=== PATIENT | female | born 1955 | race Caucasian/White ===

== ENCOUNTER 2019-10-19 13:19 | Outpatient (CLI) | payer MEDICARE, MEDICAID, SELFPAY ==
--- NOTE | 2019-10-19 13:30 | MM_ITS ---
WS: [id number] SCREENING DIGITAL MAMMOGRAM WITH CAD HISTORY: SCREENING COMPARISON: 07/14/2018 and 06/03/2016 Bilateral CC and MLO views submitted. Computer aided detection analyzed. Breast composition: There are scattered areas of fibroglandular density. No suspicious masses, microc alcifications or architectural distortion. MM/[id number] IMPRESSION: BI-RADS: 1-Negative FOLLOW UP: 1 Year Follow-up
== END 2019-10-19 13:20 | disposition home or self-care (01) ==
LOC: RADSHAW 13:28
PROVIDERS: Family Provider Family Medicine; PCP Family Medicine; Visit Provider Family Medicine
DX: Z12.31 Encounter for screening mammogram for malignant neoplasm of breast (principal)
CPT/HCPCS: 77067

== ENCOUNTER 2019-10-28 14:39 | Outpatient (CLI) | payer MEDICARE, MEDICAID, SELFPAY ==
--- NOTE | 2019-10-28 14:53 | XR_ITS ---
WS: [id number] CHEST 2 VIEWS HISTORY: CHRONIC COUGH COMPARISON: 11/18/2018 Lungs: Clear with no abnormality. No pleural effusion or pneumothorax. Cardiac size: Normal. Mediastinum/Aorta: Normal mediastinum. Bones: Normal. Prior anterior cervical fusion. XR/XR chest 2V* [id number] IMPRESSION: Normal chest.
== END 2019-10-28 14:40 | disposition home or self-care (01) ==
LOC: RAD 14:50
PROVIDERS: Family Provider Family Medicine; PCP Family Medicine; Visit Provider Nurse Practitioner Family
DX: R05 Cough (principal)
CPT/HCPCS: 71046

== ENCOUNTER → 2019-11-10 13:38 | Outpatient (BNVA) | payer MEDICARE, MEDICAID, SELFPAY | PROVIDERS: Family Provider Family Medicine; PCP Family Medicine; Visit Provider Nurse Practitioner | DX: F41.1 Generalized anxiety disorder (principal); F33.2 Major depressive disorder, recurrent severe without psychotic features; F17.210 Nicotine dependence, cigarettes, uncomplicated | CPT/HCPCS: 99213 ==

== ENCOUNTER 2019-12-01 10:52 | Outpatient (CLI) | payer MEDICARE, MEDICAID, SELFPAY ==
--- NOTE | 2019-12-01 13:17 | PFTS_ITS ---
Date of Study:12/01/2019 Date of Dictation: MECHANICS: Forced vital capacity (FVC) is normal. Forced expiratory volume in one second (FEV1) is normal. FEV1/FVC is reduced. FLOW VOLUME LOOP: Reduced flow at all lung volumes with scooping. LUNG VOLUMES: Not measured DIFFUSING CAPACITY FOR CARBON MONOXIDE: Not measured INTERPRETATION: The pulmonary function tests are consistent with mild airflow obstruction. There is significant postbronchodilator response. MTDD
== END 2019-12-01 10:53 | disposition home or self-care (01) ==
LOC: RT 10:54
PROVIDERS: Family Provider Family Medicine; PCP Family Medicine; Visit Provider Nurse Practitioner Family
DX: R05 Cough (principal)
CPT/HCPCS: 94060

== ENCOUNTER → 2020-02-02 08:35 | Outpatient (BNVA) | payer MEDICARE, MEDICAID, SELFPAY | PROVIDERS: Family Provider Family Medicine; PCP Family Medicine; Visit Provider Nurse Practitioner | DX: F33.2 Major depressive disorder, recurrent severe without psychotic features (principal); F41.1 Generalized anxiety disorder | CPT/HCPCS: 99213 ==

== ENCOUNTER 2020-03-30 12:35 | Outpatient (CLI) | payer MEDICARE, MEDICAID, SELFPAY ==
--- NOTE | 2020-03-30 12:56 | CT_ITS ---
WS: [id number] LDCT LUNG CANCER SCREENING TECHNIQUE: Noncontrast CT of the chest with coronal and sagittal reformatted images. CLINICAL INFORMATION: NICOTINE DEPENDENCE, CIGARETTES COMPARISON: CT April 29, 2018 DLP: 53.47 mGy.cm DIvol: 1.[address] scans at [facility] use at least one of these dose optimization techniques: automat ed exposure control; mA and/or kV adjustment per patient size (includes targeted exams where dose is matched to clinical indication); or iterative reconstruction. FINDINGS: Hazy atelectasis in the lung bases. A few calcified granulomas. No suspicious pulmonary parenchymal a bnormalities. No acute pulmonary infiltrates. Calcified hilar nodes. Vascular calcification including coronary. No mediastinal or hilar lymphadenopathy. Prior postoperative changes involving the stomach and GE junction. No axillary lymphadenopathy. Mild thoracic kyphosis. Prior postoperative changes lo wer cervical spine. CT/CT lung screening [id number] IMPRESSION: LUNG-RADS: 1-Negative FOLLOW UP: 12 Month: Continue annual screening with LDCT
== END 2020-03-30 12:36 | disposition home or self-care (01) ==
LOC: CT 12:40
PROVIDERS: PCP Family Medicine; Visit Provider Family Medicine
DX: Z12.2 Encounter for screening for malignant neoplasm of respiratory organs (principal); F17.210 Nicotine dependence, cigarettes, uncomplicated
CPT/HCPCS: G0297

== ENCOUNTER → 2020-04-25 07:59 | Outpatient (BNVA) | payer MEDICARE, MEDICAID, SELFPAY | PROVIDERS: PCP Family Medicine; Visit Provider Nurse Practitioner | DX: F33.2 Major depressive disorder, recurrent severe without psychotic features (principal); F41.1 Generalized anxiety disorder; F17.210 Nicotine dependence, cigarettes, uncomplicated | CPT/HCPCS: 99213 ==

== ENCOUNTER → 2020-07-19 07:48 | Outpatient (BNVA) | payer MEDICARE, MEDICAID, SELFPAY | PROVIDERS: PCP Family Medicine; Visit Provider Nurse Practitioner | DX: F33.2 Major depressive disorder, recurrent severe without psychotic features (principal); F41.1 Generalized anxiety disorder; F17.210 Nicotine dependence, cigarettes, uncomplicated | CPT/HCPCS: 99213 ==

== ENCOUNTER → 2020-07-20 12:49 | Outpatient (BNVA) | payer MEDICARE, MEDICAID, SELFPAY | PROVIDERS: PCP Family Medicine; Visit Provider Nurse Practitioner Family | DX: R06.00 Dyspnea, unspecified (principal) | CPT/HCPCS: 87635 ==

== ENCOUNTER 2020-07-24 08:54 | Outpatient (CLI) | payer MEDICARE, MEDICAID, SELFPAY ==
--- NOTE | 2020-07-24 10:56 | PFTS_ITS ---
Date of Study:07/24/20 Date of Dictation: MECHANICS: Forced vital capacity (FVC) is normal. Forced expiratory volume in one second (FEV1) is normal. FEV1/FVC is reduced. FLOW VOLUME LOOP: Minimal scooping. LUNG VOLUMES: Not performed DIFFUSING CAPACITY FOR CARBON MONOXIDE: Not performed INTERPRETATION: The spirometry is consistent with mild obstruction. MTDD
== END 2020-07-24 08:55 | disposition home or self-care (01) ==
LOC: RT 08:57
PROVIDERS: PCP Internal Medicine; Visit Provider Nurse Practitioner Family
DX: R06.00 Dyspnea, unspecified (principal); J44.9 Chronic obstructive pulmonary disease, unspecified; F17.210 Nicotine dependence, cigarettes, uncomplicated
CPT/HCPCS: 94010

== ENCOUNTER → 2020-10-16 08:03 | Outpatient (BNVA) | payer MEDICARE, MEDICAID, SELFPAY | PROVIDERS: PCP Internal Medicine; Visit Provider Nurse Practitioner | DX: F41.1 Generalized anxiety disorder (principal); F33.2 Major depressive disorder, recurrent severe without psychotic features; F17.210 Nicotine dependence, cigarettes, uncomplicated | CPT/HCPCS: 99213 ==

== ENCOUNTER → 2020-12-20 07:26 | Outpatient (BNVA) | payer MEDICARE, MEDICAID, SELFPAY | PROVIDERS: PCP Internal Medicine; Visit Provider Nurse Practitioner | DX: F33.2 Major depressive disorder, recurrent severe without psychotic features (principal); F41.1 Generalized anxiety disorder; F17.210 Nicotine dependence, cigarettes, uncomplicated | CPT/HCPCS: 99214 ==

== ENCOUNTER 2021-03-07 13:37 | Outpatient (CLI) | payer MEDICARE, MEDICAID, SELFPAY ==
--- NOTE | 2021-03-07 13:41 | MM_ITS ---
WS: [id number] BILATERAL SCREENING DIGITAL MAMMOGRAM WITH CAD HISTORY: SCREENING COMPARISON: 10/19/2019 and 2017 Bilateral CC and MLO views submitted. Computer aided detection analyzed. Breast composition: The breasts are almost entirely fatty. No suspicious masses, microcalcifications or architectural distortion. MM/[id number] IMPRESSION: BI-RADS: 1-Negative FOLLOW UP: 1 Year Follow-up
== END 2021-03-07 13:38 | disposition home or self-care (01) ==
LOC: RADSHAW 13:40
PROVIDERS: PCP Internal Medicine; Visit Provider Internal Medicine
DX: Z12.31 Encounter for screening mammogram for malignant neoplasm of breast (principal)
CPT/HCPCS: 77067

== ENCOUNTER → 2021-03-14 07:50 | Outpatient (BNVA) | payer MEDICARE, MEDICAID, SELFPAY | PROVIDERS: PCP Internal Medicine; Visit Provider Nurse Practitioner | DX: F33.2 Major depressive disorder, recurrent severe without psychotic features (principal); F41.1 Generalized anxiety disorder; F17.210 Nicotine dependence, cigarettes, uncomplicated | CPT/HCPCS: 99214 ==

== ENCOUNTER → 2021-05-17 10:53 | Outpatient (BNVA) | payer MEDICARE, MEDICAID, SELFPAY | PROVIDERS: PCP Internal Medicine; Visit Provider Surgery | DX: Z12.11 Encounter for screening for malignant neoplasm of colon (principal); K21.9 Gastro-esophageal reflux disease without esophagitis | CPT/HCPCS: 87635 ==

== ENCOUNTER 2021-05-23 05:43 | Day surgery (SDC) | payer MEDICARE, MEDICAID, SELFPAY ==
[2021-05-21 09:35] VITALS: BMI 33.0
[2021-05-23 06:06] VITALS: BP 157/103; PULSE 102; RESP 18; TEMP 36.4; O2SAT 93
[2021-05-23] MEDS: sodium chloride 0.9% 1,000 ML 30 ML IV (06:20)
--- NOTE | 2021-05-23 06:22 | P.HP_ITS ---
Same Day Surgery H&P Indication for Procedure/HPI DATE OF PROCEDURE: May 23, 2021 CHIEF COMPLAINT/INDICATIONFOR SURGICAL PROCEDURE: Blood in stool PREOP DIAGNOSIS: Bleeding per rectum PLANNED PROCEDRUE: Operation Date: 05/23/21 07:00 Proposed Procedures p Colonoscopy [id number] Z12.11 K21.9(Not Applicable) - Henri Spain MD s EGD [id number] Z12.11 K21.9(Not Applicable) - Henri Spain MD This is a pleasant 65 years old female patient well-known to me from previous clinical encounters as she comes today with broad spectrum of symptomatology including but not limited to nausea, worsening acid reflux in spite of being on PPI therapy for years and intermittent bleeding per rectum. Patient undergone a colonoscopy back in 2018 by me and found to have colon polyps and had a previous EGD that was done back in 2019 and showed gastritis food retention. Back in 2019 patient undergo modified barium swallow and showed 1. Delayed esophageal peristalsis may be due to distal esophageal dysfunction or possibly, though less likely, mechanical obstruction. Suggest follow-up esophagram. 2. Premature spillage with barium suspension and without laryngeal penetration or norbert aspiration. Interim history 05/23/2021 Patient comes today for diagnostic EGD and colonoscopy ROS All systems have been reviewed negative except as per the above or per problem list Medications/Allergies* Home Medications Medication Instructions Recorded Confirmed Type cholecalciferol (vitamin D3) 250 10,000 unit PO QDAY 11/10/19 05/21/21 History mcg (10,000 unit) capsule fenofibrate nanocrystallized 48 mg 48 mg PO QDAY 11/10/19 05/21/21 History tablet levothyroxine 125 mcg capsule 125 mcg PO QDAY 11/10/19 05/21/21 History losartan 50 mg-hydrochlorothiazide 1 tab PO QDAY 11/10/19 05/21/21 History 12.5 mg tablet melatonin 10 mg capsule 10 mg PO .at bed cap 11/10/19 05/21/21 History mirtazapine 7.5 mg tablet 7.5 mg PO QDAY 11/10/19 05/21/21 History omeprazole 40 mg capsule,delayed 40 mg PO QDAY 11/10/19 05/21/21 History release albuterol sulfate 90 mcg/actuation 2 puff INHALATION TID gm 07/18/20 05/21/21 History aerosol inhaler atorvastatin 40 mg tablet 40 mg PO DAILY 03/15/21 05/21/21 History metformin 500 mg tablet 500 mg PO DAILY 03/15/21 05/23/21 History Allergies/Adverse Reactions Allergy/AdvReac Type Severity Reaction Status Date / Time morphine Allergy Severe nausea and Verified 03/17/21 15:53 vomiting wool Allergy Unknown Verified 03/17/21 15:53 Current Medications: Generic Name Dose Route Start Last Admin Trade Name Cori PRN Reason Stop Dose Admin Sodium Chloride 1,000 mls @ 30 mls/hr 05/23/21 06:00 05/23/21 06:20 Sodium Chloride 0.9% IV 05/24/21 05:59 30 mls/hr .Q24H GAURAV Administration Pertinent History/Comorbid Conditions* Medical History (Updated 03/17/21 @ 15:59 by Henri Spain MD) Generalized anxiety disorder Major depressive disorder, recurrent severe without psychotic features Nicotine dependence, cigarettes, uncomplicated Family History (Updated 03/15/21 @ 15:49 by Xenia Sherman) Diabetes CAD (coronary artery disease) Grandmother Cancer Stroke Denies family history of Lung disease Social History Smoking and tobacco status: former smoker Second hand smoke exposure: No Alcohol intake: former Lives independently: Yes Pertinent Exam Findings alert, oriented x 3, clear to auscultation bilaterally, regular rate & rhythm and procedure specific exam findings (Abdominal examination nontender nondistended soft) Recommendations Surgery/Procedure today (Diagnostic EGD and colonoscopy) Other Plans: Plan of care; After thorough history and physical examination and reviewing the chart, plan to perform a diagnostic esophagogastroduodenoscopy and diagnostic colonoscopy with possible biopsy and possible polypectomy. I discussed with the patient in detail the risks,benefits,alternatives and indications.The risk of aspiration, bleeding, soft tissue injury, perforation of the stomach/esophagus/colon and other potential concomitant complications were explained to the patient in details also the potential need for Thoracotomy and or Laproscoy/Laparotomy to repair any related complications including but not limited to colectomy and or Closotomy. The patient understood this well and did agree to proceed. 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
[2021-05-23 06:24] LABS: Glucose Point of Care 136 mg/dL (70-110)
--- NOTE | 2021-05-23 06:50 | ANES.PREANE2 ---
Pre-Anesthetic Assessment Pre-Anesthetic Assessment: Height/Weight: Height 1.7 m Weight 95.708 kg Temp Pulse Resp BP Pulse Ox 97.6 F 102 H 18 157/103 93 05/23/21 06:06 05/23/21 06:06 05/23/21 06:06 05/23/21 06:06 05/23/21 06:06 Preop Diagnosis: Bleeding per rectum Proposed Procedure: Operation Date: 05/23/21 07:00 Proposed Procedures p Colonoscopy [id number] Z12.11 K21.9(Not Applicable) - Henri Spain MD s EGD [id number] Z12.11 K21.9(Not Applicable) - Henri Spain MD Was Beta Zenon taken within 24 hours: N/A Was Clonidine taken within 24 hours: N/A Last intake: Intake Last Liquid Date 05/22/21 Last Liquid Time 22:00 Last Solid Date 05/21/21 Last Solid Time 18:00 Social: Social History: No alcohol and No tobacco Exam: Pre-Anes Outpt Exam: alert, oriented x 3, clear to auscultation bilaterally and regular rate & rhythm Airway: Submandibular: WNL Cervical ROM: WNL MP: 2 Dentition: False History/ROS: No significant history except as noted and No significant complaints CV/HEM: CV/HEM: HTN : : None reported Hepatic: Hepatic: None reported GI: GI: GERD Metabolic: Metabolic: None reported Musc/skel: Musc/skel: None reported Neuropsych: Neuropsych: Anxiety and Depression Anesthetic Plan: ASA status: 2 Anesthesia: MAC Risk of > 500 ml blood loss (7ml/kg in children): No Meds/Allergies Current Medications: Current Medications Generic Name Dose Route Start Last Admin Trade Name Freq PRN Reason Stop Dose Admin Sodium Chloride 1,000 mls @ 30 ml s/hr 05/23/21 06:00 05/23/21 06:20 Sodium Chloride 0.9% IV 05/24/21 05:59 30 mls/hr .Q24H GAURAV Administration PFSH Anesthesia PFSH: Medical History Generalized anxiety disorder Major depressive disorder, recurrent severe without psychotic features Nicotine dependence, cigarettes, uncomplicated Family History Grandmother CAD (coronary artery disease) Other Cancer Diabetes Stroke Denies family history of Lung disease Social History Smoking and tobacco status: former smoker Second hand smoke exposure: No Alcohol intake: former Lives independently: Yes Data Anesthesia Other Labs: Laboratory Results - last 48 hr 05/23/21 06:19 POC Glucose 136 H Cardiac Studies: No Data to Display
[2021-05-23 07:28] VITALS: BP 161/96; PULSE 93; RESP 16; TEMP 36.1; O2SAT 93
[2021-05-23 07:43] VITALS: BP 169/106; PULSE 94; RESP 18; O2SAT 91
--- NOTE | 2021-05-23 14:30 | ANE.PACU2 ---
Inpatient post-anesthesia follow up: Airway intact: Yes Vital signs: Temperature 97.0 F Pulse Rate 94 Respiratory Rate 18 Blood Pressure 169/106 Pulse Oximetry 91 Oxygen Delivery Me thod Room Air Oxygen Flow Rate Fraction of Inspir ed Oxygen Hydration adequate: Yes Nausea and vomiting: No Pain level: 1 Mental status: Baseline
[2021-05-24 06:32] LABS: H. Pylori / CLO Test Negative
== END 2021-05-23 07:51 | disposition home or self-care (01) ==
PROVIDERS: PCP Internal Medicine; Visit Provider Surgery
PROC: 0DJD8ZZ Inspection of Lower Intestinal Tract, Via Natural or Artificial Opening Endoscopic (ICD-10-PCS; CPT 45378; principal; 2021-05-23 07:00)
PROC: 0DJ08ZZ Inspection of Upper Intestinal Tract, Via Natural or Artificial Opening Endoscopic (ICD-10-PCS; CPT 43235; 2021-05-23 07:00)
DX: K62.5 Hemorrhage of anus and rectum (principal); K29.70 Gastritis, unspecified, without bleeding; D12.4 Benign neoplasm of descending colon; Z87.891 Personal history of nicotine dependence; I10 Essential (primary) hypertension; K21.9 Gastro-esophageal reflux disease without esophagitis; F41.9 Anxiety disorder, unspecified; F33.9 Major depressive disorder, recurrent, unspecified
CPT/HCPCS: 36416; 43239; 45380; 82962; 87077; 88305; 96360; J2704; J7030

== ENCOUNTER → 2021-06-19 07:22 | Outpatient (BNVA) | payer MEDICARE, MEDICAID, SELFPAY | PROVIDERS: PCP Internal Medicine; Visit Provider Nurse Practitioner | DX: F33.2 Major depressive disorder, recurrent severe without psychotic features (principal); F41.1 Generalized anxiety disorder | CPT/HCPCS: 99214 ==

== ENCOUNTER 2021-09-21 14:08 | Emergency (ER) | payer MEDICARE, MEDICAID, SELFPAY ==
[2021-09-21 14:28] VITALS: BP 170/92; PULSE 80; RESP 14; O2SAT 94; BMI 32.8
[2021-09-21 14:40] VITALS: BP 125/80; PULSE 76; RESP 18; O2SAT 96
[2021-09-21 15:16] VITALS: RESP 18
[2021-09-21] MEDS: morphine 4 mg/mL SDV 1 mL IVP (15:16)
[2021-09-21] MEDS: dexamethasone 10 mg/mL INJ IVP (15:16)
[2021-09-21] MEDS: ondansetron 2 mg/ML SDV 2 mL 4 MG IVP (15:16)
[2021-09-21] MEDS: orphenadrine 30 mg/mL Inj 2 mL 60 MG IVP (15:17)
[2021-09-21] MEDS: ketorolac 30 mg/mL INJ IVP (15:17)
--- NOTE | 2021-09-21 15:50 | ED_ITS ---
HPI - Back Pain/Injury General: Chief Complaint: Back Pain/Injury Stated Complaint: lower back pain/ unable to walk w/o assistance Time Seen by Provider: 09/21/21 14:09 History of Present Illness: HPI Narrative: 65-year-old female presents emergency room complaining of low back pain. She has chronic low back issues she is having right radicular leg pain. She did previously have a neck surgery but is not had any surgical intervention to her back she cannot recall any precipitating events. Usually she can manage at home. MD elicited complaint: back pain Onset (ago): hour(s) Timing: constant Quality: sharp Location: lumbar spine Radiation: none Exacerbating factors: movement Relieving factors: sitting upright Associated symptoms: Deny abdominal pain, arthralgias, chills, change in bowel habits, difficulty walking, dysuria, fatigue, fecal incontinence, fever(s), hematuria, myalgias, nausea, numbness, syncope, tingling/numbness/burning, urinary frequency, urinary urgency, vomiting or weakness Review of Systems Const: Denies: fever(s), chills or fatigue ENMT: Denies: throat pain, ear or mastoid pain, nasal discharge or nasal congestion Card: Denies: syncope Resp: Denies: dyspnea, productive cough or non-productive cough GI: Denies: abdominal pain, nausea, vomiting, fecal incontinence or change in bowel habits : Denies: dysuria, urinary urgency or hematuria Skin/Breast: Denies: rash or pruritus Neuro: Denies: difficulty walking PFSH ED PFSH: Medical History Colon polyp (~05/2021) benign COPD (chronic obstructive pulmonary disease) Diabetes borderline Gastric fistula Generalized anxiety disorder Hypertension Hypothyroid Major depressive disorder, recurrent severe without psychotic features Nicotine dependence, cigarettes, uncomplicated quit 10/2020 No pertinent past medical history neghx:dvt/[id number] [facility]CP: [facility] History History of carpal tunnel release of both wrists History of colonoscopy with polypectomy 2019 History of hysterectomy (~1976) OCTAVIO, BSO performed at [facility] by Dr. Charles. Due to bleeding and ovarian mass. Benign History of neck surgery 2001 History of right knee surgery History of shoulder surgery bilateral Trigger thumb Family History Grandmother CAD (coronary artery disease) Father Hypertension Mother Breast cancer, Onset Age: 67 Brother Cancer lung Family/Other Uterine cancer maternal aunt Other Diabetes Stroke Denies family history of Colon cancer Ovarian cancer Clotting disorder Hyperlipidemia Lung disease Thyroid disease Physical Exam Const: COMMON NORMALS: no acute distress GENERAL APPEARANCE: cooperative and comfortable ORIENTATION/CONSCIOUSNESS: Yes awake, Yes oriented to person, Yes oriented to place and Yes oriented to time HENMT: COMMON NORMALS: normocephalic, atraumatic and hearing grossly normal bilaterally HEAD & SCALP: normocephalic and atraumatic Neck/C-Spine: COMMON NORMALS: no JVD Resp: COMMON NORMALS: normal respiratory effort, No retractions, No use of accessory muscles and clear to auscultation bilaterally AUSCULTATION: clear to auscultation bilaterally Cardio: COMMON NORMALS: no JVD, regular rate, regular rhythm and No murmurs present (Cardio) RATE: regular rate RHYTHM: regular rhythm GI: COMMON NORMALS: Soft to palpation and No hepatosplenomegaly present AUSCULTATION: Yes normoactive bowel sounds PALPATION: Yes Soft to palpation, No Tenderness to palpation present (GI), No Guarding due to palpation present (GI) and Yes No hepatosplenomegaly present Extremity: COMMON NORMALS: normal to inspection, capillary refill normal, no clubbing, cyanosis or edema, no calf tenderness and no pedal edema Neuro: SENSORIUM/ORIENTATION: Yes oriented to person, Yes oriented to place and Yes oriented to time OTHER: Dorsal and plantar flexion strength 5/5 sensation lower extremities normal straight leg raising mildly positive on the right leg. Skin: COMMON NORMALS: no rashes or lesions noted GENERAL SKIN EXAM: no rashes or lesions noted Course Vital Signs: Vital signs: Vital Signs Pulse Rate 76 09/21/21 14:40 Respiratory Rate 18 09/21/21 15:16 Blood Pressure 125/80 09/21/21 14:40 Pulse Oximetry 96 09/21/21 14:40 MDM - Back Pain/Injury MDM Narrative: Medical decision making narrative: Pain improved with medications. Patient has no signs of cauda equina syndrome at this time. Will discharge home with steroids pain medications as below muscle relaxers follow-up with primary care if symptoms persist may need advanced imaging can return if has any change of symptoms. Discharge Plan Discharge Patient Disposition: Home Clinical Impression: Sciatica Condition: Stable Prescriptions: New diclofenac sodium 75 mg tablet,delayed release (DR/EC) 75 mg PO Q12H PRN (Reason: pain) Qty: 20 RF: 0 tizanidine 4 mg capsule 4 mg PO Q6H PRN (Reason: muscle spasticity) Qty: 20 RF: 0 prednisone 20 mg tablet 20 mg PO BID 7 Days Qty: 15 RF: 0 hydrocodone-acetaminophen 5-325 mg tablet 1 tab PO Q6H PRN (Reason: pain) Qty: 10 RF: 0 Discontinued naproxen sodium [Flanax (naproxen)] 220 mg tablet 220 mg PO BID PRNRF: 0 No Action metformin 500 mg tablet 500 mg PO DAILY RF: 0 atorvastatin 40 mg tablet 40 mg PO DAILY RF: 0 levothyroxine 125 mcg capsule 125 mcg PO QDAY RF: 0 cholecalciferol (vitamin D3) 10,000 unit capsule 10,000 unit PO QDAY RF: 0 omeprazole 40 mg capsule,delayed release(DR/EC) 40 mg PO QDAY RF: 0 fenofibrate nanocrystallized 48 mg tablet 48 mg PO QDAY RF: 0 losartan-hydrochlorothiazide 50-12.5 mg tablet 1 tab PO QDAY RF: 0 albuterol sulfate 90 mcg/actuation HFA aerosol inhaler 2 puff INHALATION TID RF: 0 estradiol 1 mg tablet 1.5 mg PO DAILY Qty: 90 RF: 0 alprazolam [Xanax] 0.5 mg tablet 0.5 mg PO BID PRN (Reason: anxiety) Qty: 60 RF: 2 duloxetine [Cymbalta] 60 mg capsule,delayed release(DR/EC) 120 mg PO QDAY Qty: 60 RF: 2 topiramate [Topamax] 25 mg capsule, sprinkle 25 mg PO .at bed Qty: 30 RF: 2 Discharge Orders: Discharge ED (Routine); Ordered 09/21/21 Ordered By: Orlin Corea Referrals: Broderick Wall MD [Primary Care Provider] - Discharge Activity: Increase activity as tolerated Patient Instructions: Opioid Safety Activity Restrictions/Additional Instructions: Follow-up with your primary care doctor within the next 4 to 5 days sooner if you have worsening symptoms Coding Level of Care Code ED Account Planner for Chg Fwd Exam Comprehensive
== END 2021-09-21 16:27 | disposition home or self-care (01) ==
PROVIDERS: Emergency Provider Family Medicine; PCP Family Medicine
DX: M54.30 Sciatica, unspecified side (principal); Z79.84 Long term (current) use of oral hypoglycemic drugs; J44.9 Chronic obstructive pulmonary disease, unspecified; E11.9 Type 2 diabetes mellitus without complications; I10 Essential (primary) hypertension
CPT/HCPCS: 96374; 96375; 99283; J1100; J1885; J2270; J2360; J2405

== ENCOUNTER → 2021-09-24 07:31 | Outpatient (BNVA) | payer MEDICARE, MEDICAID, SELFPAY | PROVIDERS: PCP Family Medicine; Visit Provider Nurse Practitioner | DX: F33.2 Major depressive disorder, recurrent severe without psychotic features (principal); F41.1 Generalized anxiety disorder | CPT/HCPCS: 99214 ==

== ENCOUNTER 2021-10-02 13:54 | Emergency (ER) | payer MEDICARE, MEDICAID, SELFPAY ==
[2021-10-02 14:32] VITALS: BP 131/80; PULSE 85; RESP 16; TEMP 36.1; O2SAT 96; BMI 31.9
[2021-10-02 16:08] LABS: Basophils # 0.1 10^3/uL (0.0-0.1); Basophils % 0.4 %; Eosinophils # 0.2 10^3/uL (0.0-0.8); Eosinophils % 1.5 %; Hematocrit 43.6 % (37.0-47.0); Hemoglobin 13.2 g/dL (11.5-15.3); Lymphocytes # 3.7 10^3/uL (0.8-4.8); Lymphocytes % 27.3 %; Mean Corpuscular HGB Conc 30.3 g/dL (30.0-36.0); Mean Corpuscular Hemoglobin 24.9 pg (28.0-34.0); Mean Corpuscular Volume 82.1 fl (81-99); Mean Platelet Volume 9.6 fL (7.4-10.4); Monocytes # 1.4 10^3/uL (0.2-0.9); Monocytes % 10.3 %; Neutrophils # 8.25 10^3/uL (1.8-7.7); Neutrophils % 60.1 %; Nucleated Red Blood Cells % 0 %; Platelet Count 526 10^3/cmm (130-400); Red Blood Count 5.31 10^6/uL (4.1-5.3); Red Cell Distribution Width 14.4 % (12.1-15.1); White Blood Count 13.7 10^3/uL (4.0-10.0)
[2021-10-02 16:37] LABS: Alanine Aminotransferase 11 U/L (0-33); Albumin Level 4.2 g/dL (3.5-5.2); Alkaline Phosphatase 67 IU/L (35-105); Anion Gap 17.9 (5-19); Aspartate Amino Transferase 5 U/L (0-32); Blood Urea Nitrogen 18 mg/dL (8-23); Calcium 9.4 mg/dL (8.5-10.5); Carbon Dioxide 25 mmol/L (22-29); Chloride 102 mmol/L (98-107); Globulin 2.8 g/dL (1.3-4.6); Glomerular Filtration Rate 72.2 mL/min (90-130); Glucose 84 mg/dL (65-115); Osmolality Calculated 293 mOsm/kg (285-295); Potassium 3.9 mmol/L (3.5-5.1); Sodium 141 mmol/L (136-145); Total Bilirubin 0.2 mg/dL (0.15-1.2)
[2021-10-02 17:41] LABS: Add Urine Microscopic? NO; Charge for UA Resulting for Rev
--- NOTE | 2021-10-02 17:46 | CTR_ITS ---
PROCEDURE INFORMATION: Exam: CT Lumbar Spine Without Contrast Exam date and time: 10/02/2021 5:46 PM Age: 65 years old Clinical indication: Low back pain; Additional info: Eval fractures TECHNIQUE: Imaging protocol: Computed tomography images of the lumbar spine without contrast. Radiation optimization: All CT scans at this facility use at least one of these dose optimization techniques: automated exposure control; mA and/or kV adjustment per patient size (includes targeted exams where dose is matched to clinical indication); or iterative reconstruction. COMPARISON: CR Lumbar Spine 2-3 views* [id number] 12/10/2016 8:39 AM RADIATION DOSE METRICS: Total DLP (mGy-cm): 2345 FINDINGS: Vertebrae: No acute fracture. Minimal grade 1 anterolisthesis of L4 on L5. Discs/Spinal canal/Neural foramina: Multilevel disc protrusion noted at L1-L2, L2-L3, and L3-L4 with at least moderate central canal stenosis in these regions. There is also moderate to severe central canal stenosis at L4-L5 due to a combination of minimal anterolisthesis of L4 on L5 and the appearance of ligamentum flavum hypertrophy. There is also facet arthropathy noted within the lower lumbar spine. Soft tissues: Unremarkable. CT/CT lumbar spine wo con* [id number] IMPRESSION: 1. Negative for fracture. 2. Multilevel degenerative disc disease and disc protrusion with multifocal moderate to severe central canal stenosis as described in the body of the report.
[2021-10-02 17:51] LABS: Bilirubin Urine Neg (Negative); Blood Urine Neg (Negative); Glucose Urine UA Norm (Normal); Ketones Urine Negative (Negative); Leukocyte Esterase Urine Negative (Negative); Nitrate Urine Negative (Negative); Protein Urine Neg (Negative); Specific Gravity, Urine 1.015 (1.005-1.030); Sulfosalicylic Acid Urine Negative (Negative); Urine Appearance Clear (CLEAR); Urine Color Yellow (Yellow); Urobilinogen Urine Norm (Negative); pH Urine 8 (5-7)
[2021-10-02] MEDS: ondansetron 2 mg/ML SDV 2 mL 4 MG IVP (18:32)
[2021-10-02 18:33] VITALS: RESP 20
[2021-10-02] MEDS: morphine 4 mg/mL SDV 1 mL IVP (18:33)
--- NOTE | 2021-10-02 19:18 | ED_ITS ---
HPI - General Adult General: Chief complaint: Back Pain/Injury Stated complaint: Back feels out, bladder issues/passing blood Time Seen by Provider: 10/02/21 17:28 History of Present Illness: HPI narrative: [65]yo patient w/ hx of chronic R- sided lumbar back pain presenting to the ED with acutely worsening chronic pain x 3 days. Pain started 3 days ago. Patient was told to go the ER for an MRI. Today, patients denies trauma to the back, fever/chill/IVDU, LE weakness, saddle anesthesia/bowel incontinence/bladder incontinence, or hx of recent weight loss or cancer. In addition, he does not have a history of kidney stone or urinary symptoms/hx of UTI. Onset: chronic, acutely worsening symptoms x 3 days Duration: 3 days Location: Back pain with radiation to the R leg Severity: moderate Review of Systems Narrative: Constitutional: No fever, no chills. HEENT: No vision changes CV: No chest pain, no palpitations PULM: No cough, no dyspnea. GI: No abdominal pain, no N/V/D. : No dysuria MSKEL: No edema SKIN: No new rashes, no lesions. NEURO: No headache, no focal weakness. HEME: No visible bruises PSYCH: Normal mood BACK: R-sided lumbar paraspinal pain radiating to the legs PFS ED PFSH: Medical History Colon polyp (~05/2021) benign COPD (chronic obstructive pulmonary disease) Diabetes borderline Gastric fistula Generalized anxiety disorder Hypertension Hypothyroid Major depressive disorder, recurrent severe without psychotic features Nicotine dependence, cigarettes, uncomplicated quit 10/2020 No pertinent past medical history neghx:dvt/pe [facility]CP: [facility] Surgical History History of carpal tunnel release of both wrists History of colonoscopy with polypectomy 2019 History of hysterectomy (~1976) OCTAVIO[place] [facility] [place] Due to bleeding and ovarian mass. Benign History of neck surgery 2001 History of right knee surgery History of shoulder surgery bilateral Trigger thumb Family History Grandmother CAD (coronary artery disease) Father Hypertension Mother Breast cancer, Onset Age: 67 Brother Cancer lung Family/Other Uterine cancer maternal aunt Other Diabetes Stroke Denies family history of Colon cancer Ovarian cancer Clotting disorder Hyperlipidemia Lung disease Thyroid disease Physical Exam Narrative: EXAM NARRATIVE: Head: Atraumatic Eyes: PERRL, conjunctiva without injection ENT: Mucous membrane moist NECK: Supple without lymphadenopathy LUNGS: CTA CV: RRR ABDOMEN: Soft, nontender EXTREMITY: Normal ROM, 5/5 strength in hip/knee/ankle f/e bilaterally, sensation intact bilaterally in the LE, SKIN: No rash or erythema NEURO: Awake and alert. No focal motor deficits. PSYCH: Normal mood and affect. : No saddle anesthesia BACK: No midline tenderness, no step off, obvious deformity, hip stable, R sided paraspinal lumbar tenderness with radiation to the R leg Course Vital Signs: Vital signs: Vital Signs Temperature 97.0 F L 10/02/21 14:32 Pulse Rate 85 10/02/21 14:32 Respiratory Rate 20 H 10/02/21 18:33 Blood Pressure 131/80 10/02/21 14:32 Pulse Oximetry 96 10/02/21 14:32 MDM - General Adult MDM Narrative: Medical decision making narrative: [65]yo patient w/ hx of chronic lumbar pain with radiation to the R side presenting to the ED with acute worsening lumbar pain x 3 days acutely, now has pain with ambulation. Neurological exam including LE exam intact. The Patient is able to bear weight on legs and ambulate with moderate pain. No red flags of IVDU/fever, hx or symptomatology of cancer w/ mets to the bones, neurological findings or bowel or bladder incontinence, or acute trauma/fracture of the vertebral columns. Workup: CT lumbar spine Intervention: morphine/zofran [7:30pm] On reassessment, the patient reports the pain is significantly improved with medications. Patient is now able to ambulate in the ED with only mild pain. CT lumbar showed Multilevel degenerative disc disease and disc protrusion with multifocal moderate to severe central canal stenosis. At the present time, I have discussed the importance for the patient to follow up with orthopedics HIMANSHU and the patient agrees. Postvoid residual of 36ML (<100cc). No suspicion for acute cord compression or epidural abscess at the present time. Patient was told go to follow up with PCP for outpatient MRI. WBC of 13.7, likely reactive. I do not think this is reflective of underlying infection. Rx: menthol cream, lidocaine patch, tylenol PRN pain Disposition: Discharge. Patient is given SRP for any focal weakness, intractable pain, fever/chill, any signs of bowel or bladder incontinence. Patient is instructed to follow up with the orthopedics provider. I have provided an additional orthopedic referral for the patient should the patient need it. Patient verbalizes understanding and plans to do so in the next few days. Patient may benefit from physical therapy and I have discussed the need for patient to follow up with PCP for physical therapy evalution. Lab Data: Labs: Lab Results 10/02/21 10/02/21 10/02/21 16:00 16:00 17:33 WBC 13.7 10^3/uL H 10 ^3/uL (4.0-10.0) RBC 5.31 10^6/uL H 10 ^6/uL (4.1-5.3) Hgb 13.2 g/dL g/dL (11.5-15.3) Hct 43.6 % % (37.0-47.0) MCV 82.1 fl fl (81-99) MCH 24.9 pg L pg (28.0-34.0) MCHC 30.3 g/dL g/dL (30.0-36.0) RDW 14.4 % % (12.1-15.1) Plt Count 526 10^3/cmm H 10 ^3/cmm (130-400) MPV 9.6 fL fL (7.4-10.4) Neut % (Auto) 60.1 % % Lymph % (Auto) 27.3 % % Lumpkin % (Auto) 10.3 % % Eos % (Auto) 1.5 % % Baso % (Auto) 0.4 % % Neut # (Auto) 8.25 10^3/uL H 10 ^3/uL (1.8-7.7) Lymph # (Auto) 3.7 10^3/uL 10^3/ uL (0.8-4.8) Lumpkin # (Auto) 1.4 10^3/uL H 10^ 3/uL (0.2-0.9) Eos # (Auto) 0.2 10^3/uL 10^3/ uL (0.0-0.8) Baso # (Auto) 0.1 10^3/uL 10^3/ uL (0.0-0.1) Nucleated RBC % (a uto) 0 % % Nucleated RBCs # 0.0 /100WBC /100W BC Sodium 141 mmol/L mmol/L (136-145) Potassium 3.9 mmol/L mmol/L (3.5-5.1) Chloride 102 mmol/L mmol/L (98-107) Carbon Dioxide 25 mmol/L mmol/L (22-29) Anion Gap 17.9 (5-19) BUN 18 mg/dL mg/dL (8-23) Creatinine 0.8 mg/dL mg/dL (0.5-0.9) GFR Calculation 72.2 mL/min L mL/ min (90-130) Glucose 84 mg/dL mg/dL (65-115) Calculated Osmolal ity 293 mOsm/kg mOsm/ kg (285-295) Calcium 9.4 mg/dL mg/dL (8.5-10.5) Total Bilirubin 0.2 mg/dL mg/dL (0.15-1.2) AST 5 U/L U/L (0-32) ALT 11 U/L U/L (0-33) Alkaline Phosphata se 67 IU/L IU/L (35-105) Total Protein 7.0 g/dL g/dL (6.6-8.7) Albumin 4.2 g/dL g/dL (3.5-5.2) Globulin 2.8 g/dL g/dL (1.3-4.6) Urine Color Yellow (Yellow) Urine Appearance Clear (CLEAR) Urine pH 8 H (5-7) Ur Specific Gravit y 1.015 (1.005-1.030) Urine Protein Neg (Negative) Urine Glucose (UA) Norm (Normal) Urine Ketones Negative (Negative) Urine Blood Neg (Negative) Urine Nitrate Negative (Negative) Urine Bilirubin Neg (Negative) Prot Sulfosalicyli c Acd Negative (Negative) Urine Urobilinogen Norm mg/dL mg/dL (Negative) Ur Leukocyte Jeri ase Negative (Negative) Imaging Data^: Other Imaging: Radiologist's impression: [address] [id number] Scan ReportSigned Patient: eJanine Harrison #: [id number]: 7Acct#:[id number]/Sex: 65 / FADM Date: 10/02/21Loc: ERRoom/Bed:Attending Dr: Ordering Provider/Ordering MD: Justa Isabel MD Date of Service: 10/02/21 Procedure(s): CT lumbar spine wo con* [id number] Accession Number(s): [id number] Report Number: [id number] PROCEDURE INFORMATION: Exam: CT Lumbar Spine Without Contrast Exam date and time: 10/02/2021 5:46 PM Age: 65 years old Clinical indication: Low back pain; Additional info: Eval fractures TECHNIQUE: Imaging protocol: Computed tomography images of the lumbar spine without contrast. Radiation optimization: All CT scans at this facility use at least one of these dose optimization techniques: automated exposure control; mA and/or kV adjustment per patient size (includes targeted exams where dose is matched to clinical indication); or iterative reconstruction. COMPARISON: CR Lumbar Spine 2-3 views* [id number] 12/10/2016 8:39 AM RADIATION DOSE METRICS: Total DLP (mGy-cm): 2345 FINDINGS: Vertebrae: No acute fracture. Minimal grade 1 anterolisthesis of L4 on L5. Discs/Spinal canal/Neural foramina: Multilevel disc protrusion noted at L1-L2, L2-L3, and L3-L4 with at least moderate central canal stenosis in these regions. There is also moderate to severe central canal stenosis at L4-L5 due to a combination of minimal anterolisthesis of L4 on L5 and the appearance of ligamentum flavum hypertrophy. There is also facet arthropathy noted within the lower lumbar spine. Soft tissues: Unremarkable. CT/CT lumbar spine wo con* [id number] IMPRESSION: 1. Negative for fracture. 2. Multilevel degenerative disc disease and disc protrusion with multifocal moderate to severe central canal stenosis as described in the body of the report. Dictated By:Owen Rush DOSigned By:Owen Rush DOSigned Date/Time:10/02/21 1853DD/ 1746 Discharge Plan Discharge Patient Disposition: Home Clinical Impression: Back pain Condition: Stable Prescriptions: New acetaminophen 500 mg tablet 500 mg PO Q6H PRN (Reason: pain) 5 Days Qty: 20 RF: 0 orphenadrine citrate 100 mg tablet extended release 100 mg PO BID PRN (Reason: pain) 10 Days Qty: 20 RF: 0 lidocaine 5 % adhesive patch,medicated 1 patch topical DAILY PRN (Reason: pain) 10 Days Qty: 10 RF: 0 Biofreeze (menthol) 5 % gel 1 ea topical BID PRN (Reason: pain) 10 Days Qty: 1 RF: 0 No Action metformin 500 mg tablet 500 mg PO DAILY RF: 0 atorvastatin 40 mg tablet 40 mg PO DAILY RF: 0 levothyroxine 125 mcg capsule 125 mcg PO QDAY RF: 0 cholecalciferol (vitamin D3) 10,000 unit capsule 10,000 unit PO QDAY RF: 0 omeprazole 40 mg capsule,delayed release(DR/EC) 40 mg PO QDAY RF: 0 fenofibrate nanocrystallized 48 mg tablet 48 mg PO QDAY RF: 0 losartan-hydrochlorothiazide 50-12.5 mg tablet 1 tab PO QDAY RF: 0 albuterol sulfate 90 mcg/actuation HFA aerosol inhaler 2 puff INHALATION TID RF: 0 estradiol 1 mg tablet 1.5 mg PO DAILY Qty: 90 RF: 0 alprazolam [Xanax] 0.5 mg tablet 0.5 mg PO BID PRN (Reason: anxiety) Qty: 60 RF: 2 duloxetine [Cymbalta] 60 mg capsule,delayed release(DR/EC) 120 mg PO QDAY Qty: 60 RF: 2 topiramate [Topamax] 25 mg capsule, sprinkle 25 mg PO .at bed Qty: 30 RF: 2 diclofenac sodium 75 mg tablet,delayed release (DR/EC) 75 mg PO Q12H PRN (Reason: pain) Qty: 20 RF: 0 tizanidine 4 mg capsule 4 mg PO Q6H PRN (Reason: muscle spasticity) Qty: 20 RF: 0 hydrocodone-acetaminophen 5-325 mg tablet 1 tab PO Q6H PRN (Reason: pain) Qty: 10 RF: 0 Discharge Orders: Discharge ED (Routine); Ordered 10/02/21 Ordered By: Justa Isabel Referrals: Broderick Wall MD [Primary Care Provider] - Discharge Diet: Advance as tolerated Discharge Activity: Resume usual activity Patient Instructions: Back Pain (ED) Activity Restrictions/Additional Instructions: Follow-up with your primary care provider Dr. Alston to see if he can qualify and obtain an MRI for further evaluation. Your CT scan showed significant canal stenosis that will need close followup. Take your medicine as instructed. Come back to the emergency room have any weakness in the legs, worsening pain, inability to control your bladder or bowel, or any new worsening complaints. Coding Level of Care Code ED Predator Control Trapper for Chandler Hollis
[2021-10-02 19:41] VITALS: RESP 18
== END 2021-10-02 19:45 | disposition home or self-care (01) ==
PROVIDERS: Physician Assistant; Emergency Provider Emergency Medicine; PCP Family Medicine
DX: M47.896 Other spondylosis, lumbar region (principal); M51.26 Other intervertebral disc displacement, lumbar region; M54.50 Low back pain, unspecified; G89.29 Other chronic pain; Z87.891 Personal history of nicotine dependence
CPT/HCPCS: 36415; 72131; 80053; 81003; 85025; 96374; 96375; 99283; J2270; J2405

== ENCOUNTER 2021-10-11 06:50 | Outpatient (CLI) | payer MEDICARE, MEDICAID, SELFPAY ==
--- NOTE | 2021-10-11 07:05 | MR_ITS ---
WS: [id number] MRI LUMBAR SPINE NONCONTRAST TECHNIQUE: Sagittal T1, T2 and STIR imaging. Axial T1 and T2 imaging. CLINICAL INFORMATION: BACK PAIN, LUMBAR, WITH RADICULOPATHY COMPARISON: CT October 02, 2021 FINDINGS: Mild lumbar curve. No acute compression. Slight anterolisthesis L4 on L5. Disc bulging worse at L1-L3 . L1-L2: Mild annular bulging. Mild central canal stenosis. Mild facet arthropathy. Foramen are patent. L2-L3: Right pericentral disc extrusion fills the right subarticular recess and proximal foramen. Dis c material measures 5 x 13 mm. Moderate central canal stenosis. Impingement traversing right L3 nerve root. Severe right foraminal narrowing with impingement on the exiting right L2 nerve root. Left for amen is patent. Mild facet arthropathy with ligamentum flavum hypertrophy. L3-L4: Shallow left pericentral protrusion. Moderate central canal stenosis. Impingement traversing l eft L4 nerve root. Mild facet arthropathy ligamentum flavum hypertrophy. Mild left foraminal narrowin g. L4-L5: Grade 1 anterolisthesis. Moderate central canal stenosis. Slight impingement traversing right greater than left L5 nerve roots. Mild right foraminal narrowing. L5-S1: No significant disc bulging. Moderate facet arthropathy. Spinal canal and foramen are patent. Visualized pelvic bony structures: Normal. Paravertebral soft tissues: Normal. Shallow central protrusion C3-C4 with mild central canal stenosis on the revenue enforcement agent imaging. Prior postope rative changes in the cervical spine with grade 1 anterolisthesis C7 on T1. MR/MR lumbar spine wo con* [id number] IMPRESSION: 1. Mild lumbar curve. No acute compression. 2. Right subarticular disc extrusion L2-3 with migration into the right subart icular recess and proximal neural foramen. Impingement traversing right L3 nerv e root and exiting right L2 nerve root with severe right foraminal narrowing. M oderate central canal stenosis. Slight subligamentous migration of disc materia l. 3. Moderate central canal stenosis L3-4 with impingement on the traversing lef t L4 nerve root. 4. Moderate central canal stenosis L4-5 with impingement on the traversing rig ht L5 nerve root. 5. Mild left L3-4 and right L4-5 foraminal narrowing. 6. Moderate facet arthropathy L5-S1.
== END 2021-10-11 06:51 | disposition home or self-care (01) ==
LOC: RADSHAW 06:55
PROVIDERS: PCP Family Medicine; Visit Provider Family Medicine
DX: M54.16 Radiculopathy, lumbar region (principal); M47.817 Spondylosis without myelopathy or radiculopathy, lumbosacral region; M48.061 Spinal stenosis, lumbar region without neurogenic claudication; M51.26 Other intervertebral disc displacement, lumbar region
CPT/HCPCS: 72148

== ENCOUNTER → 2021-10-25 14:07 | Outpatient (BNVA) | payer MEDICARE, MEDICAID, SELFPAY | PROVIDERS: PCP Family Medicine; Referring Provider Family Medicine; Visit Provider Orthopaedic Surgery | DX: M54.50 Low back pain, unspecified (principal) | CPT/HCPCS: 72110 ==

== ENCOUNTER → 2021-11-08 00:01 | Outpatient (BNVA) | payer MEDICARE, MEDICAID, SELFPAY | PROVIDERS: PCP Family Medicine; Visit Provider Orthopaedic Surgery | DX: Z20.822 Contact with and (suspected) exposure to COVID-19 (principal) | CPT/HCPCS: 87635 ==

== ENCOUNTER → 2021-11-08 10:38 | Day surgery (SDC) | payer MEDICARE, MEDICAID, SELFPAY | PROVIDERS: PCP Family Medicine; Visit Provider Orthopaedic Surgery | DX: Z01.818 Encounter for other preprocedural examination (principal) | CPT/HCPCS: 93005 ==

== ENCOUNTER → 2021-11-13 10:00 | Outpatient (BNVA) | payer MEDICARE, MEDICAID, SELFPAY | PROVIDERS: PCP Family Medicine; Visit Provider Orthopaedic Surgery | DX: Z20.822 Contact with and (suspected) exposure to COVID-19 (principal); Z01.812 Encounter for preprocedural laboratory examination | CPT/HCPCS: 87635 ==

== ENCOUNTER 2021-11-19 07:10 | Day surgery (SDC) | payer MEDICARE, MEDICAID, SELFPAY ==
--- NOTE | 2021-11-08 10:38 | ECG_ITS ---
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 Measurements Intervals [place] Rate: 93 P: 29 IN: 128 QRS: 40 QRSD: 133 T: 13 QT: 392 QTc: 489 Interpretive Statements SINUS RHYTHM INTRAVENTRICULAR CONDUCTION DELAY [130+ ms QRS DURATION] SEPTAL MYOCARDIAL INFARCTION , PROBABLY OLD [40+ ms Q WAVE IN V1/V2] No previous ECG available for comparison Electronically Signed On 11-08-2021 22:29:08 TOOL TURRET LATHE SET UP OPERATOR by Mehnaz Marquez M.D. [id number]
[2021-11-08 10:50] VITALS: BMI 31.3
[2021-11-08 11:58] LABS: Anion Gap 17.5 (5-19); Blood Urea Nitrogen 16 mg/dL (8-23); Calcium 9.9 mg/dL (8.5-10.5); Carbon Dioxide 24 mmol/L (22-29); Chloride 103 mmol/L (98-107); Glucose 98 mg/dL (65-115); Osmolality Calculated 293 mOsm/kg (285-295); Potassium 3.5 mmol/L (3.5-5.1); Sodium 141 mmol/L (136-145)
--- NOTE | 2021-11-08 12:30 | P.ANESASSM_ITS ---
Pre-Anesthetic Assessment Height/Weight: Height 1.7 m Weight 90.718 kg Preop Diagnosis: Bleeding per rectum Operation Date: 11/14/21 12:15 Proposed Procedures p Lumbar Spine Decompression L2/3, L3/4, L4/5 31603/98549/M48.062(Right) - Enrique Ghosh DO Familial anesthetic complications: None Was Beta Zenon taken within 24 hours: N/A Was Clonidine taken within 24 hours: N/A Social No alcohol and No tobacco Exam alert, oriented x 3, clear to auscultation bilaterally and regular rate & rhythm Airway Submandibular: within normal limits Cervical ROM: within normal limits Mallampati: Class II Pulmonary Chronic Obstructive Pulmonary Disease CV/HEM Hypertension GI Gastroesophageal Reflux Disease Metabolic Diabetes Mellitus, Morbid Obesity and Thyroid Disease Musc/skel Lower Back Pain and Osteoarthritis/DJD Neuropsych Anxiety and Depression Anesthetic Plan ASA status: 3 Anesthesia: General Risk of > 500 ml blood loss (7ml/kg in children): No Medications/Allergies Home Medications Medication Instructions Recorded Confirmed Last Taken Type cholecalciferol (vitamin D3) 250 10,000 unit PO QDAY 11/10/19 11/08/21 05/22/21 History mcg (10,000 unit) capsule fenofibrate nanocrystallized 48 mg 48 mg PO QDAY 11/10/19 11/08/21 05/22/21 History tablet levothyroxine 125 mcg capsule 125 mcg PO QDAY 11/10/19 11/08/21 05/22/21 History losartan 50 mg-hydrochlorothiazide 1 tab PO QDAY 11/10/19 11/08/21 05/22/21 History 12.5 mg tablet omeprazole 40 mg capsule,delayed 40 mg PO QDAY 11/10/19 11/08/21 05/22/21 Hist ory release albuterol sulfate 90 mcg/actuation 2 puff INHALATION TID gm 07/18/20 11/08/21 0 05/22/21 History aerosol inhaler atorvastatin 40 mg tablet 40 mg PO DAILY 03/15/21 11/08/21 05/22/21 History metformin 500 mg tablet 500 mg PO DAILY 03/15/21 11/08/21 05/21/21 History alprazolam 0.5 mg tablet (Xanax) 0.5 mg PO BID PRN #60 tab 09/20/21 11/08/21 Unknown Rx duloxetine 60 mg capsule,delayed 120 mg PO QDAY #60 cap 09/20/21 11/08/21 Unknown Rx release (Cymbalta) topiramate 25 mg sprinkle capsule 25 mg PO .at bed #30 cap 09/20/21 11/08/21 Unknown Rx (Topamax) estradiol 1 mg tablet 1.5 mg PO DAILY #135 tab 10/25/21 11/08/21 Unknown Rx mirtazapine 15 mg tablet 15 mg PO DAILY 11/08/21 11/08/21 Unknown History Allergies Allergy/AdvReac Type Severity Reaction Status Date / Time morphine Allergy Unknown nausea and Verified 10/25/21 14:05 vomiting wool Allergy Unknown Verified 10/25/21 14:05 [facility] Anesthesia Medical History Colon polyp (~05/2021) benign COPD (chronic obstructive pulmonary disease) Diabetes borderline Gastric fistula Generalized anxiety disorder Hypertension Hypothyroid Major depressive disorder, recurrent severe without psychotic features Nicotine dependence, cigarettes, uncomplicated quit 10/2020 No pertinent past medical history neghx:dvt/pe [facility]CP: [facility] Surgical History History of carpal tunnel release of both wrists History of colonoscopy with polypectomy 2019 History of hysterectomy (~1976) OCTAVIO, BSO performed at [facility] [place] by Dr. Charles. Due to bleeding and ovarian mass. Benign History of neck surgery 2001 History of right knee surgery History of shoulder surgery bilateral Trigger thumb Family History Grandmother CAD (coronary artery disease) Father Hypertension Mother Breast cancer, Onset Age: 67 Brother Cancer lung Family/Other Uterine cancer maternal aunt Other Diabetes Stroke Denies family history of Colon cancer Ovarian cancer Clotting disorder Hyperlipidemia Lung disease Thyroid disease Social History Smoking and tobacco status: former smoker Data Anesthesia : 11/08/21 11:00 BMP 11/08/21 11:00 Sodium 141 Potassium 3.5 Chloride 103 Carbon Dioxide 24 BUN 16 Creatinine 0.7 Glucose 98 Calcium 9.9 Cardiac Studies: No Data to Display
[2021-11-19] VITALS (11 sets, daily range): BP systolic 123–178; BP diastolic 59–97; PULSE 92–107; RESP 14–20; TEMP 35.9–36.6; O2SAT 90–100
--- NOTE | 2021-11-19 | XR_ITS ---
WS: [id number] XR lumbar spine 1V [id number] REASON FOR EXAM: Lumbar stenosis with neurogenic claudication FINDINGS: Surgical instrument overlies the left L4-L5 disc space. XR/XR lumbar spine 1V [id number] IMPRESSION: Lumbar spine localization in surgery.
--- NOTE | 2021-11-19 | SCC_ITS ---
Procedure done: 1. L2/3 Laminectomy with partial facetectomy 2. L3/4 laminectomy with partial facetectomy 3. L4/5 laminectomy with partial facetetomy 23.1 seconds of fluoroscopic guidance, for a cumulative dose of 11.52 mGy, was provided to Dr. Ghosh by the radiology department. C-arm images of the lumbar spine were saved for the patient's permanent record. [facility]
[2021-11-19 07:48] LABS: Glucose Point of Care 128 mg/dL (70-110)
[2021-11-19] MEDS: sodium chloride 0.9% 1,000 ML 30 ML IV (07:56)
--- NOTE | 2021-11-19 08:34 | W.PM.OPSUD ---
Surgery/Procedure H&P Update DATE OF PROCEDURE: November 19, 2021 DATE H&P PERFORMED: 10/25/21 CHANGES TO PREVIOUS DOCUMENTATION: H+P reviewed no changes PREOP DIAGNOSIS: Lumbar stenosis with neurogenic claudication PLANNED PROCEDURE: Operation Date: 11/19/21 08:50 Proposed Procedures p Lumbar Spine Decompression L2/3, L3/4, L4/5 71678/94787/M48.062(Right) - Enrique Gohsh DO
[2021-11-19] MEDS: midazolam 1 mg/mL INJ 2 mL 2 MG IVP (08:46)
--- NOTE | 2021-11-19 09:20 | P.ANESUD_ITS ---
Pre-Anesthetic Update Pre-Anesthetic Assessment: Date of Surgery/Procedure: 11/19/21 Preop Michelle gnosis: Lumbar stenosis with neurogenic claudication Proposed Procedure: Operation Date: 11/19/21 08:50 Proposed Procedures p Lumbar Spine Decompression L2/3, L3/4, L4/5 80205/74050/M48.062(Right) - Enrique Ghosh, DO Any changes to Pre-Anesthetic Assessment?: No Last Intake: Intake Last Liquid Date 11/18/21 Last Liquid Time 19:30 Last Solid Date 11/18/21 Last Solid Time 19:30 Vitals: Temperature 96.6 F L 11/19/21 07:17 Temperature Source Temporal Artery S can 11/19/21 07:17 Pulse Rate 106 H 11/19/21 07:17 Pulse Rhythm 11/19/21 07:28 Pulse Strength 3+ Normal 11/19/21 07:28 Respiratory Rate 17 11/19/21 07:17 Blood Pressure 178/95 11/19/21 07:17 Blood Pressure Janeth n 122 11/19/21 07:17 Pulse Oximetry 95 11/19/21 07:17 Oxygen Delivery Me thod 11/19/21 07:28 Exam: Pre-Anes Outpt Exam: alert, oriented x 3, clear to auscultation bilaterally and regular rate & rhythm Cardiac Studies: No Data to Display
--- NOTE | 2021-11-19 10:57 | PM.OP ---
Operative Report Date of procedure: November 19, 2021 Pre-op diagnosis: Preop Diagnosis Lumbar stenosis with neurogenic claudication Post-op diagnosis: same Procedure done: 1. L2/3 Laminectomy with partial facetectomy 2. L3/4 laminectomy with partial facetectomy 3. L4/5 laminectomy with partial facetetomy Surgeon: Enrique Ghosh Public Address System Installer: Reji Alves Public Address System Installer: The engineer first assistant, Reji Alves, PAC was needed for his expertise under the microscope. He was important and necessary throughout the procedure to complete in a safe and timely manner. He assisted with patient positioning prepping and draping tissue retraction suctioning of the operative field protection of the dural sac and tissue closure Estimated blood loss (mL): 5 Procedure: 1. L2/3 Laminectomy with partial facetectomy 2. L3/4 laminectomy with partial facetectomy 3. L4/5 laminectomy with partial facetectomy Patient is brought to the operative suite. After undergoing anesthesia they are placed in the prone position. All areas of impingement are well padded. Patient is then prepped and draped in the normal sterile fashion. A skin incision is made over the L4/5 level. This is confirmed under c-arm guidance. A series of dilators are passed and the tubular retractor is docked on the L4 lamina. A bovie is used to clear the soft tissue off the lamina and the L 4/5 facet joint. A high speed kalpana is then used to perform the laminectomy and take down the medial aspect of the L 4/5 facet joint. A kerrison rongeure was then used to take down the remaining lamina and smooth the edge of the laminectomy up to the point where the ligamentum flavum attaches. Attention was then brought to the medial aspect of the facet joint. The remaining medial aspect of the superior and inferior aspect of the facet joint were taken down with the kerrison from the pedicle of L4 to L 5. The facet joint had significant hypertrophy. Attention was then brought to the Ligamentum Flavum. The ligament was taken down from the lamina of L4 to L5 and out medially to the remaining facet joint. The ligament was thick. The dura was then exposed. The dura was in good repair. The L4 nerve was then traced with a curette out the L4/5 foramen and found to be adequately decompressed. The L5 nerve was traced with a curette around the L5 pedicle. The lateral recess was opened with a kerrison helping to further decompress the L5 nerve. Wound is then irrigated copiously with saline and surgiflo is used to stop any bleeding. The tubular retractor is removed and A skin incision is made over the L3/4 level. This is confirmed under c-arm guidance. A series of dilators are passed and the tubular retractor is docked on the L3 lamina. A bovie is used to clear the soft tissue off the lamina and the L 3/4 facet joint. A high speed kalpana is then used to perform the laminectomy and take down the medial aspect of the L 3/4 facet joint. A kerrison rongeure was then used to take down the remaining lamina and smooth the edge of the laminectomy up to the point where the ligamentum flavum attaches. Attention was then brought to the medial aspect of the facet joint. The remaining medial aspect of the superior and inferior aspect of the facet joint were taken down with the kerrison from the pedicle of L3 to L 4. The facet joint had significant hypertrophy. Attention was then brought to the Ligamentum Flavum. The ligament was taken down from the lamina of L3 to L4 and out medially to the remaining facet joint. The ligament was thick. The dura was then exposed. The dura was in good repair. The L3 nerve was then traced with a curette out the L3/4 foramen and found to be adequately decompressed. The L4 nerve was traced with a curette around the L4 pedicle. The lateral recess was opened with a kerrison helping to further decompress the L4 nerve. Wound is then irrigated copiously with saline and surgiflo is used to stop any bleeding. The tubular retractor is removed and A skin incision is made over the L2/3 level. This is confirmed under c-arm guidance. A series of dilators are passed and the tubular retractor is docked on the L2 lamina. A bovie is used to clear the soft tissue off the lamina and the L 2/3 facet joint. A high speed kalpana is then used to perform the laminectomy and take down the medial aspect of the L 2/3 facet joint. A kerrison rongeure was then used to take down the remaining lamina and smooth the edge of the laminectomy up to the point where the ligamentum flavum attaches. Attention was then brought to the medial aspect of the facet joint. The remaining medial aspect of the superior and inferior aspect of the facet joint were taken down with the kerrison from the pedicle of L2 to L 3. The facet joint had significant hypertrophy. Attention was then brought to the Ligamentum Flavum. The ligament was taken down from the lamina of L2 to L3 and out medially to the remaining facet joint. The ligament was thick. The dura was then exposed. The dura was in good repair. The L2 nerve was then traced with a curette out the L2/3 foramen and found to be adequately decompressed. The L3 nerve was traced with a curette around the L3 pedicle. The lateral recess was opened with a kerrison helping to further decompress the L3 nerve. Wound is then irrigated copiously with saline and surgiflo is used to stop any bleeding. The tubular retractor is removed and the wound is closed with vicryl and monocryl suture. Glue is then used to protect the wound. A sterile dressing is then placed. Patient was then placed in the supine position and transferred to the PACU in stable condition.
[2021-11-19] MEDS: ondansetron 2 mg/ML SDV 2 mL 4 MG IVP (12:01)
[2021-11-19] MEDS: diphenhydrAMINE 50 mg/mL SDV 1mL 12.5 MG IVP (12:56)
[2021-11-19] MEDS: HYDROcodone-acetaminophen 5-325 mg Tablet 1 TAB PO (13:09)
--- NOTE | 2021-11-19 14:12 | ANE.PACU2 ---
Inpatient post-anesthesia follow up: Airway intact: Yes Vital signs: Temperature 97.6 F Pulse Rate 99 Respiratory Rate 18 Blood Pressure 133/97 Pulse Oximetry 95 Oxygen Delivery Me thod Room Air Oxygen Flow Rate 1 Fraction of Inspir ed Oxygen Hydration adequate: Yes Nausea and vomiting: No Pain level: 2 Mental status: Baseline
== END 2021-11-19 13:30 | disposition home or self-care (01) ==
PROVIDERS: PCP Family Medicine; Visit Provider Orthopaedic Surgery
PROC: (CPT 63005; principal; 2021-11-19 08:40)
DX: M48.062 Spinal stenosis, lumbar region with neurogenic claudication (principal); J44.9 Chronic obstructive pulmonary disease, unspecified; K21.9 Gastro-esophageal reflux disease without esophagitis; E11.9 Type 2 diabetes mellitus without complications; E66.01 Morbid (severe) obesity due to excess calories; Z68.31 Body mass index [BMI] 31.0-31.9, adult; M19.90 Unspecified osteoarthritis, unspecified site; Z87.891 Personal history of nicotine dependence
CPT/HCPCS: 63047; 63048 ×2; 36416; 72020; 76000; 80048; 82962; J0690; J1100; J1200; J2250; J2405; J2704; J3010; J3490; J7030

== ENCOUNTER → 2021-12-18 07:33 | Outpatient (BNVA) | payer MEDICARE, MEDICAID, SELFPAY | PROVIDERS: PCP Family Medicine; Visit Provider Nurse Practitioner | DX: F33.2 Major depressive disorder, recurrent severe without psychotic features (principal); F41.1 Generalized anxiety disorder | CPT/HCPCS: 99214 ==

== ENCOUNTER → 2022-01-24 14:44 | Outpatient (BNVA) | payer MEDICARE, MEDICAID, SELFPAY | PROVIDERS: PCP Family Medicine; Visit Provider Orthopaedic Surgery | DX: Z47.89 Encounter for other orthopedic aftercare (principal); Z98.890 Other specified postprocedural states | CPT/HCPCS: 99024 ==

== ENCOUNTER → 2022-03-07 09:32 | Outpatient (BNVA) | payer MEDICARE, MEDICAID, SELFPAY | PROVIDERS: PCP Family Medicine; Visit Provider Orthopaedic Surgery | DX: R53.1 Weakness (principal); Z47.89 Encounter for other orthopedic aftercare; Z98.890 Other specified postprocedural states | CPT/HCPCS: 99213; 99214 ==

== ENCOUNTER → 2022-03-13 13:04 | Outpatient (BNVA) | payer MEDICARE, MEDICAID, SELFPAY | PROVIDERS: PCP Family Medicine; Visit Provider Nurse Practitioner | DX: F33.2 Major depressive disorder, recurrent severe without psychotic features (principal); F41.1 Generalized anxiety disorder | CPT/HCPCS: 99214 ==

== ENCOUNTER 2022-03-27 12:00 | Outpatient (CLI) | payer MEDICARE, MEDICAID, SELFPAY ==
--- NOTE | 2022-03-27 12:14 | CT_ITS ---
WS: [email or web address] LDCT LUNG CANCER SCREENING TECHNIQUE: Noncontrast CT of the chest with coronal and sagittal reformatted images. CLINICAL INFORMATION: HX OF TOBACCO USE COMPARISON: March 30, 2020 DLP: 83.40 mGy.cm DIvol: Mean CTDIvol: 1.60 (mGy) All CT scans at [facility] use at least one of these dose optimization techniques: automat ed exposure control; mA and/or kV adjustment per patient size (includes targeted exams where dose is matched to clinical indication); or iterative reconstruction. FINDINGS: Calcified granuloma RIGHT upper lobe. Slight subsegmental atelectasis in the lung bases. No suspicious pulmonary parenchymal abnormalities. No acute pulmonary infiltrates. No focal pneumonia o r pleural fluid. Normal caliber thoracic aorta. Mild aortic calcification. Coronary calcification. No mediastinal or h ilar lymphadenopathy. Postoperative changes at the GE junction. Splenic granuloma. Adrenal glands are normal. No axillary l ymphadenopathy. Mild thoracic kyphosis. Endplate Schmorl's nodes in the mid and lower thoracic spine. Prior postopera tive changes ACDF in the cervical spine. CT/CT lung screening [id number] IMPRESSION: LUNG-RADS: 1-Negative FOLLOW UP: 12 Month: Continue annual screening with LDCT
== END 2022-03-27 12:01 | disposition home or self-care (01) ==
LOC: RAD 12:02
PROVIDERS: PCP Family Medicine; Visit Provider Family Medicine
DX: Z12.2 Encounter for screening for malignant neoplasm of respiratory organs (principal); Z87.891 Personal history of nicotine dependence
CPT/HCPCS: 71271

== ENCOUNTER 2022-04-04 12:54 | Outpatient (CLI) | payer MEDICARE, MEDICAID, SELFPAY ==
--- NOTE | 2022-04-04 14:33 | PFTS_ITS ---
Date of Study:04/04/22 Date of Dictation: MECHANICS: Forced vital capacity (FVC) is normal. Forced expiratory volume in one second (FEV1) is reduced. FEV1/FVC is reduced. FLOW VOLUME LOOP: Reduced flow at all lung volumes with significant scooping. LUNG VOLUMES: Not measured DIFFUSING CAPACITY FOR CARBON MONOXIDE: Not measured. INTERPRETATION: The postbronchodilator spirometry is consistent with moderate airflow obstruction. There is no significant postbronchodilator response. MTDD
== END 2022-04-04 12:55 | disposition home or self-care (01) ==
LOC: RT 12:56
PROVIDERS: PCP Family Medicine; Visit Provider Family Medicine
DX: J44.9 Chronic obstructive pulmonary disease, unspecified (principal)
CPT/HCPCS: 94060; J7614

== ENCOUNTER 2022-04-18 07:47 | Outpatient (CLI) | payer MEDICARE, MEDICAID, SELFPAY ==
--- NOTE | 2022-04-18 08:00 | MR_ITS ---
WS: [id number] MRI LUMBAR SPINE NONCONTRAST HISTORY: Postop lumbar spine surgery 11/19/2021. Continued low back pain down RIGHT leg. COMPARISON: 10/11/2021 TECHNIQUE: Sagittal and axial multisequence imaging is submitted. Very slight increase in the lumbar lordosis. Less than 2 mm retrolisthesis of L2 and L3. No fractures or marrow edema. Disc spaces are mildly desiccated throughout. No fluid within the disc spaces. Conus terminates normally at L1-2 disc level. L1-L2: Mild annular disc bulging progressed since the prior study. Slightly greater encroachment upon the thecal sac and increase in the central stenosis and subarticular recess stenosis. Moderate centr al and bilateral subarticular recess stenosis. Most significant encroachment into the subarticular re cesses on the traversing L2 nerve roots. No significant foraminal stenosis. L2-L3: Moderate annular disc bulging with a central disc protrusion. Marked ligamentum flavum hypertr ophy and facet arthritis. New RIGHT hemilaminectomy defect. The largest disc protrusion on the RIGHT is no longer present but the central disc protrusion remains. Moderate central with bilateral subarti cular recess stenosis. L3-L4: Moderate diffuse annular disc bulging with a LEFT paracentral disc protrusion, ligamentum flav um hypertrophy and facet arthritis. Disc encroachment upon the thecal sac. Moderate central stenosis and bilateral subarticular recess stenosis contacting the L4 nerve roots. No significant change. L4-L5: Moderate diffuse annular disc bulging with facet and ligamentum flavum hypertrophy. Facet arth ritis encroaching into the thecal sac. Moderate central and bilateral subarticular recess stenosis. S imilar to the prior study. L5-S1: Mild facet arthritis. No stenosis. Paravertebral soft tissues are negative. Disc encroachment upon the cervical cord at C3-4. MR/MR lumbar spine wo con* [id number] IMPRESSION: 1. Since the prior examination there is now a RIGHT hemilaminectomy defect at the L2-3 level. Right-sided subarticular disc extrusion is no longer present. 2. Annular disc bulging with a central disc protrusion remains at L2-3 resulti ng in moderate central and bilateral subarticular recess stenosis. 3. Moderate central and bilateral subarticular recess stenosis at L1-2 with en croachment upon the traversing L2 nerve roots. Mild progression since the prior study. 4. Moderate central and bilateral subarticular recess stenosis at L3-4 with a LEFT paracentral disc protrusion. Disc contacts the traversing L4 nerve roots. 5. Moderate central and bilateral subarticular recess stenosis at L4-5 similar to the prior study.
== END 2022-04-18 07:48 | disposition home or self-care (01) ==
PROVIDERS: PCP Family Medicine; Visit Provider Orthopaedic Surgery
DX: Z48.89 Encounter for other specified surgical aftercare (principal); M48.061 Spinal stenosis, lumbar region without neurogenic claudication; M54.16 Radiculopathy, lumbar region; M47.817 Spondylosis without myelopathy or radiculopathy, lumbosacral region
CPT/HCPCS: 72148

== ENCOUNTER → 2022-04-25 09:04 | Outpatient (BNVA) | payer MEDICARE, MEDICAID, SELFPAY | PROVIDERS: PCP Family Medicine; Visit Provider Physician Assistant | DX: M48.062 Spinal stenosis, lumbar region with neurogenic claudication (principal) | CPT/HCPCS: 99213 ==

== ENCOUNTER 2022-05-17 08:48 | Outpatient (CLI) | payer MEDICARE, MEDICAID, SELFPAY ==
--- NOTE | 2022-05-17 08:58 | MM_ITS ---
WS: [id number] Bilateral screening 3D tomosynthesis digital mammogram, 05/17/2022 Clinical Data: SCREENING Comparison: 03/07/2021, 10/19/2019, 07/14/2018, 06/18/2017, 06/03/2016, 02/23/2015, 12/15/2013, 10/23/2012, 09/12, 08/02/2010, 08/01/2029, 07/11/2008. Findings: The breast parenchymal pattern shows fat replacement. No spiculated masses or clustered calcification s are seen. There are no secondary signs of carcinoma. MM/[place] [id number] Impression: 1. Negative bilateral mammogram unchanged. 2. Recommend annual screening mammograms. BIRADS: 1-Negative FOLLOW UP: 1 Year Follow-up The CAD wash test checker was used.
== END 2022-05-17 08:49 | disposition home or self-care (01) ==
LOC: RAD 08:48
PROVIDERS: PCP Family Medicine; Visit Provider Family Medicine
DX: Z12.31 Encounter for screening mammogram for malignant neoplasm of breast (principal)
CPT/HCPCS: 77063; 77067

== ENCOUNTER 2023-05-15 08:54 | Outpatient (CLI) | payer MEDICARE, MEDICAID, SELFPAY ==
--- NOTE | 2023-05-15 | XR_ITS ---
WS: [email or web address] Right hand, 3 views, 05/15/2023 Clinical Data: TRIGGER FINGER OF RIGHT RING FINGER Comparison: None. Findings: No fractures or dislocations are seen. The soft tissues are unremarkable. The joint space s are normal XR/XR hand RT min 3V* [id number] Impression: Negative right hand.
== END 2023-05-15 08:55 | disposition home or self-care (01) ==
PROVIDERS: PCP Family Medicine; Visit Provider Family Medicine
DX: M65.341 Trigger finger, right ring finger (principal)
CPT/HCPCS: 73130

== ENCOUNTER 2023-05-19 13:01 | Outpatient (CLI) | payer MEDICARE, MEDICAID, SELFPAY ==
--- NOTE | 2023-05-19 13:16 | MM_ITS ---
WS: [email or web address] SCREENING DIGITAL BREAST TOMOSYNTHESIS MAMMOGRAM WITH CAD HISTORY: SCREENING COMPARISON: 05/17/2022, 03/07/2021 and 2017 Bilateral CC and MLO with tomosynthesis and synthetic mammography submitted. Computer aided detection analyzed. Breast composition: There are scattered areas of fibroglandular density. There are new bilateral ill- defined asymmetries which have not been present on prior studies. These need to be further evaluated. Additional imaging RIGHT breast inferomedial. Scattered opacifications seen best on the LEFT CC proj ection in the medial and lateral breast need additional imaging also. MM/[place] [id number] IMPRESSION: BI-RADS: 0-Incomplete: Need additional imaging evaluation FOLLOW UP: Need Additional Imaging RIGHT breast: Spot compression views (CC and MLO). True ML. Ultrasound to follo w if abnormality persists. LEFT breast: Spot compression views (CC ). True ML. Ultrasound to follow if abn ormality persists.
--- NOTE | 2023-05-19 13:17 | CT_ITS ---
WS: [email or web address] LDCT LUNG CANCER SCREENING TECHNIQUE: Noncontrast CT of the chest with coronal and sagittal reformatted images. CLINICAL INFORMATION: HISTORY OF TOBACCO USE COMPARISON: March 27, 2022 DLP: 108.21 mGy.cm DIvol: Mean CTDIvol: 2.50 (mGy) All CT scans at [facility] use at least one of these dose optimization techniques: automat ed exposure control; mA and/or kV adjustment per patient size (includes targeted exams where dose is matched to clinical indication); or iterative reconstruction. FINDINGS: Lungs are well aerated. No suspicious pulmonary parenchymal opacities. No acute pulmonary i nfiltrates. No focal pneumonia or pleural fluid. Aortic calcification. Normal caliber thoracic aorta. Coronary calcification. Calcified hilar and subc arinal lymph nodes. Adrenal glands are normal. Postoperative changes gastric sleeve procedure. No axi llary lymphadenopathy. Postoperative changes lower cervical spine. Hypertrophic changes thoracic spin e. CT/CT lung screening [id number] IMPRESSION: LUNG-RADS: 1-Negative FOLLOW UP: 12 Month: Continue annual screening with LDCT
== END 2023-05-19 13:02 | disposition home or self-care (01) ==
PROVIDERS: PCP Family Medicine; Visit Provider Family Medicine
DX: Z12.31 Encounter for screening mammogram for malignant neoplasm of breast (principal); Z12.2 Encounter for screening for malignant neoplasm of respiratory organs; Z87.891 Personal history of nicotine dependence
CPT/HCPCS: 71271; 77063; 77067

== ENCOUNTER → 2023-06-11 08:24 | Outpatient (BNVA) | payer MEDICARE, MEDICAID, SELFPAY | PROVIDERS: PCP Family Medicine; Referring Provider Family Medicine; Visit Provider Specialist | DX: M65.341 Trigger finger, right ring finger; M65.351 Trigger finger, right little finger | CPT/HCPCS: 73130; 99204 ==

== ENCOUNTER 2023-06-23 10:44 | Outpatient (CLI) | payer MEDICARE, MEDICAID, SELFPAY ==
--- NOTE | 2023-06-23 10:49 | MM_ITS ---
WS: [email or web address] ADDITIONAL VIEWS RIGHT MAMMOGRAM WITH DIGITAL BREAST TOMOSYNTHESIS. RIGHT BREAST ULTRASOUND HISTORY: ABNORMAL MAMMO COMPARISON: 05/19/2023, 05/17/2022 RIGHT MAMMOGRAM: Spot compression views and true ML with digital breast tomosynthesis and SM. Asymmetry persists but nearly completely resolves in the medial RIGHT breast posteriorly. Asymmetry m easures approximately 11 mm and the margins are ill-defined. No associated calcification. RIGHT BREAST ULTRASOUND 2-D and color Doppler imaging submitted. Ill-defined, hypoechoic, slightly lobulated mass at 3:00, 4 cm from the nipple measures 8 x 8 x 12 mm . This does correspond in size and location to the mammographic abnormality. There is a small amount of edge shadowing with no increased vascularity. IMPRESSION: MM/[place] [id number] BI-RADS: 4-Suspicious Finding-Biopsy Should Be Considered FOLLOW UP: Biopsy Recommended Ultrasound-guided biopsy recommended RIGHT breast mass at 3:00. Notified Broderick Wall MD at 06/24/2023 8:05 AM. Message left on the [employer] machine at the office.
[2023-06-23 12:26] LABS: Add Urine Microscopic? NO; Charge for UA Resulting for Rev
[2023-06-23 12:28] LABS: Basophils # 0.1 10^3/uL (0.0-0.1); Basophils % 0.8 %; Eosinophils # 0.1 10^3/uL (0.0-0.8); Eosinophils % 1.3 %; Hematocrit 40.8 % (36-47); Lymphocytes # 3.6 10^3/uL (0.8-4.8); Lymphocytes % 34.2 %; Mean Corpuscular HGB Conc 32.6 g/dL (30-55); Mean Corpuscular Hemoglobin 27.5 pg (27-33); Mean Corpuscular Volume 84.3 fl (85-98); Mean Platelet Volume 9.6 fL (7.4-10.4); Monocytes # 1.1 10^3/uL (0.2-0.9); Monocytes % 10.8 %; Neutrophils # 5.49 10^3/uL (1.8-7.7); Neutrophils % 52.5 %; Nucleated Red Blood Cells % 0 %; Platelet Count 356 10^3/cmm (157-399); Red Blood Count 4.84 10^6/uL (3.85-5.65); Red Cell Distribution Width 12.7 % (12.1-15.1); White Blood Count 10.45 10^3/uL (3.29-11.43)
[2023-06-23 12:32] LABS: Bilirubin Urine Neg (Negative); Blood Urine Neg (Negative); Glucose Urine UA Norm (Normal); Ketones Urine Negative (Negative); Leukocyte Esterase Urine Negative (Negative); Nitrate Urine Negative (Negative); Protein Urine Neg (Negative); Specific Gravity, Urine 1.005 (1.005-1.030); Urine Appearance Clear (CLEAR); Urine Color Yellow (Yellow); Urobilinogen Urine Norm (Negative); pH Urine 7 (5-7)
[2023-06-23 12:52] LABS: Alanine Aminotransferase 15 U/L (0-33); Albumin Level 4.1 g/dL (3.5-5.2); Alkaline Phosphatase 69 U/L (35-105); Anion Gap 12.1 (5-19); Aspartate Amino Transferase 8 U/L (0-32); Blood Urea Nitrogen 16 mg/dL (8-23); Calcium 9.1 mg/dL (8.5-10.5); Carbon Dioxide 27 mmol/L (22-29); Chloride 105 mmol/L (98-107); Globulin 2.5 g/dL (1.3-4.6); Glomerular Filtration Rate 62.6 mL/min (90-130); Glucose 100 mg/dL (65-115); Osmolality Calculated 291 mOsm/kg (285-295); Potassium 4.1 mmol/L (3.5-5.1); Sodium 140 mmol/L (136-145); Total Bilirubin 0.3 mg/dL (0.15-1.2); Total Protein 6.6 g/dL (6.6-8.7)
== END 2023-06-23 10:45 | disposition home or self-care (01) ==
PROVIDERS: Specialist; PCP Family Medicine; Visit Provider Family Medicine
DX: R92.8 Other abnormal and inconclusive findings on diagnostic imaging of breast (principal); N63.15 Unspecified lump in the right breast, overlapping quadrants; M65.30 Trigger finger, unspecified finger
CPT/HCPCS: 36415; 76642; 77062; 80053; 81003; 85025; G0279

== ENCOUNTER 2023-07-02 10:24 | Outpatient (CLI) | payer MEDICARE, MEDICAID, SELFPAY ==
--- NOTE | 2023-07-02 10:39 | US_ITS ---
WS: [email or web address] ULTRASOUND-GUIDED RIGHT BREAST BIOPSY HISTORY: ABNORMAL MAMMOGRAM/LUMP OR MASS IN BREAST COMPARISON: 06/23/2023 Procedure, risks and complications are explained to the patient. Medications are reviewed. Consent is obtained. The mass in the RIGHT breast is localized with ultrasound. Mass localizes to 3:00, 4 cm from the nipp le. Skin is cleansed with ChloraPrep and anesthetized with 1% buffered lidocaine. Small dermatome is made. Under sterile conditions mass is biopsied with a 14-gauge Achieve needle. Multiple core biopsie s are performed. Material placed in formalin and sent to pathology for review. No complications encou ntered. Breast tissue marker (Bard ultrasound enhanced ribbon): Single. Patient left the radiology suite with no complications. Patient is instructed to return to [facility] or [facility] with any concerns. IMPRESSION: 1. Uncomplicated core needle biopsy RIGHT breast mass at 3:00. US/[place] [id number] PATHOLOGY: Atypical ductal hyperplasia. RECOMMENDATION: Recommend surgical evaluation and lumpectomy as atypical ductal hyperplasia may be a precursor to invasive carcinoma. Recommend surgical excis ion to obtain larger area of sampling.
== END 2023-07-02 10:25 | disposition home or self-care (01) ==
PROVIDERS: PCP Family Medicine; Visit Provider Family Medicine
DX: N60.91 Unspecified benign mammary dysplasia of right breast (principal); R92.8 Other abnormal and inconclusive findings on diagnostic imaging of breast
CPT/HCPCS: 19083; 88305

== ENCOUNTER 2023-07-04 07:45 | Day surgery (SDC) | payer MEDICARE, MEDICAID, SELFPAY ==
[2023-07-03 11:18] VITALS: BMI 32.1
[2023-07-04] VITALS (17 sets, daily range): BP systolic 113–184; BP diastolic 56–111; PULSE 78–104; RESP 14–114; TEMP 36.2–37.2; O2SAT 90–94
[2023-07-04] MEDS: gabapentin 300 mg Capsule PO (08:15)
[2023-07-04] MEDS: CELEcoxib 200 mg Capsule 400 MG PO (08:15)
[2023-07-04] MEDS: acetaminophen 1,000 MG/100 ML PIGGYBACK 400 MG IV (08:17)
--- NOTE | 2023-07-04 08:27 | W.PM.OPSUD ---
Surgery/Procedure H&P Update DATE OF PROCEDURE: July 04, 2023 DATE H&P PERFORMED: 06/11/23 H&P UPDATE INFORMATION: I have reviewed H&P completed within last 30 days, I have examined patient prior to procedure, No changes to prior documentation and H&P is in [facility] EMR on date indicated PLANNED PROCEDURE: Operation Date: 07/04/23 09:30 Proposed Procedures p RIGHT RING AND LITTLE FINGER TRIGGER FINGER RELEASE [id number],M65.30(Not Applicable) - Marianela Muhammad MD Related Problem List Diagnoses (1) Acquired trigger finger of right ring finger: (2) Acquired trigger finger of right little finger:
[2023-07-04] MEDS: sodium chloride 0.9% 1,000 ML 30 ML IV (08:29)
--- NOTE | 2023-07-04 08:45 | P.ANESASSM_ITS ---
Pre-Anesthetic Assessment Height/Weight: Height 1.7 m Weight 92.986 kg Temp Pulse Resp BP Pulse Ox O2 Del Method 97.6 F 104 H 18 143/105 94 Room Air 07/04/23 08:04 07/04/23 08:04 07/04/23 08:04 07/04/23 08:04 07/04/23 08:04 07/04/23 08:04 Operation Date: 07/04/23 09:30 Proposed Procedures p RIGHT RING AND LITTLE FINGER TRIGGER FINGER RELEASE [id number],M65.30(Not Applicable) - Marianela Muhammad MD Was Beta Zenon taken within 24 hours: N/A Was Clonidine taken within 24 hours: N/A Last intake: Intake Last Liquid Date 07/03/23 Last Liquid Time 20:00 Last Solid Date 07/03/23 Last Solid Time 20:00 Social No tobacco Exam alert, oriented x 3, clear to auscultation bilaterally and regular rate & rhythm Airway Submandibular: within normal limits Cervical ROM: within normal limits Mallampati: Class III Comments: Comments: Edentulous History/ROS No significant history except as noted and No significant complaints CV/HEM Hypertension GI Gastroesophageal Reflux Disease Metabolic Hyperlipidemia, Morbid Obesity and Thyroid Disease Neuropsych Anxiety and Depression Anesthetic Plan ASA status: 3 Anesthesia: Choice Risk of > 500 ml blood loss (7ml/kg in children): No Medications/Allergies Home Medications Medication Instructions Recorded Confirmed Last Taken Type cholecalciferol (vitamin D3) 250 10,000 unit PO QDAY 11/10/19 07/03/23 07/03/23 History mcg (10,000 unit) capsule fenofibrate nanocrystallized 48 mg 48 mg PO QDAY 11/10/19 07/03/23 07/03/23 History tablet levothyroxine 125 mcg capsule 125 mcg PO QDAY 11/10/19 07/03/23 07/03/23 History omeprazole 40 mg capsule,delayed 40 mg PO QDAY 11/10/19 07/03/23 07/03/23 History release atorvastatin 40 mg tablet 40 mg PO DAILY 03/15/21 07/03/23 07/03/23 History magnesium oxide 400 mg PO DAILY 06/12/22 07/03/23 07/03/23 History potassium 99 mg tablet 99 mg PO DAILY 06/12/22 07/03/23 07/03/23 History umeclidinium 62.5 mcg-vilanterol 1 inh inhalation DAILY 06/12/22 07/04/23 07/04/23 History 25 mcg/actuation powdr for inhalation (Anoro Ellipta) estradiol 2 mg tablet See Rx Instructions .Route 05/28/23 07/03/23 07/03/23 Rx .COMPLEX #90 tabs paroxetine HCl 20 mg tablet (Paxil) 20 mg PO DAILY #90 tabs 05/28/23 07/03/23 07/03/23 Rx acetaminophen 500 mg capsule 500 mg PO Q6H PRN Pain 06/27/23 07/03/23 Unknown History albuterol sulfate 90 mcg/actuation 2 inh inhalation Q4H PRN sob 06/27/2307/03/23 History breath activated powder inhaler alprazolam 0.5 mg tablet (Xanax) 0.5 mg PO BID PRN anxiety #60 tabs 06/27/23 07/03/23 Unknown Rx duloxetine 60 mg capsule,delayed 120 mg PO QDAY #60 caps 06/27/23 07/03/23 07/03/23 Rx release (Cymbalta) losartan 50 mg-hydrochlorothiazide 2 tab PO QDAY 06/27/23 07/03/23 07/03/23 History 12.5 mg tablet naproxen 250 mg tablet 500 mg PO .qpm PRN Pain 06/27/23 07/03/23 Unknown History topiramate 25 mg sprinkle capsule 25 mg PO .at bed #30 caps 06/27/23 07/03/23 07/03/23 Rx (Topamax) Allergies Allergy/AdvReac Type Severity Reaction Status Date / Time adhesive tape Allergy Mild ALGY-Redness Verified 07/04/23 07:55 of Skin wool Allergy ALGY-Rash Verified 07/04/23 07:55 Current Medications Generic Name Dose Route Start Last Admin Trade Name Freq PRN Reason Stop Dose Admin Sodium Chloride 1,000 mls @ 30 mls/hr 07/04/23 08:15 07/04/23 08:29 Sodium Chloride 0.9% IV 07/05/23 08:14 30 mls/hr .Q24H GAURAV Administration PFSH Anesthesia Medical History Colon polyp (~05/2021) benign COPD (chronic obstructive pulmonary disease) Diabetes borderline Gastric fistula Generalized anxiety disorder Hypertension Hypothyroid Major depressive disorder, recurrent severe without psychotic features Nicotine dependence, cigarettes, uncomplicated quit 10/2020 No pertinent past medical history neghx:dvt/pe [facility]CP: [facility] History History of back surgery 11/19/21 History of carpal tunnel release of both wrists History of colonoscopy with polypectomy 2019 History of hysterectomy (~1976) OCTAVIO, BSO performed at [facility] [place] by Dr. Charles. Due to bleeding and ovarian mass. Benign History of neck surgery 2001 History of right knee surgery History of shoulder surgery bilateral Trigger thumb Family History Grandmother CAD (coronary artery disease) Father Hypertension Mother Breast cancer, Onset Age: 67 Brother Cancer lung Family/Other Uterine cancer maternal aunt Other Diabetes Stroke Denies family history of Colon cancer Ovarian cancer Clotting disorder Hyperlipidemia Lung disease Thyroid disease Social History Smoking and tobacco status: former smoker Substance/Drug Use: never Data Anesthesia Cardiac Studies: No Data to Display
[2023-07-04] MEDS: ceFAZolin 2,000 MG in sodium chloride 0.9% (plus) 50 ML 100 MG IV (09:24)
[2023-07-04] MEDS: BUPivacaine 0.5% INJ 30 mL INJECTION (09:54)
[2023-07-04] MEDS: fentaNYL 50 mcg/mL INJ 2mL IVP ×2 (10:24→10:29)
--- NOTE | 2023-07-04 10:33 | PM.OP ---
Operative Report Date of procedure: July 04, 2023 Pre-op diagnosis: Right ring and small finger triggering Post-op diagnosis: Right ring and small finger triggering Post-op findings: Significant thickening particularly of the ring A1 fatmata. Also thickening of the fibrous tissue proximally which was also released Procedure done: Right ring and small finger trigger release Surgeon: Marianela Muhammad MD Anesthesia: General (Per LMA, ASA 3) Estimated blood loss (mL): 1 Tourniquet time (min): 17 (At 250 mmHg) IV fluids (mL): 400 Urine output (mL): 0 (No Fraire) Complications: None Findings: Severe thickening of the A1 fatmata and fibrotic change proximally Condition: stable Disposition: PACU (Then return to same-day surgery for discharge to home) Brief History: This 67-year-old woman is presenting today for trigger finger release of the right ring and small fingers. When the patient was initially seen, she had significant catching in the right ring finger. She had difficulty picking up objects. Subsequently, she developed pain in the right small finger in the area of the A1 fatmata and she began to have symptoms leading to triggering in that finger. Therefore, after discussion in the office, the patient wished to proceed with trigger finger release of the right ring and small fingers. Preoperatively, the patient also queried issue with her long finger, however, upon palpation this appeared to be much more in the area of the ring finger. Procedure: Patient was brought to the operating theater. She was placed on the operating room table. A general anesthesia per LMA, ASA 3, was administered without difficulty. Patient tolerated it well. The patient received Ancef 2 g prophylactically preoperatively. A tourniquet was placed high on the arm and was elevated following exsanguination of the arm. Tourniquet time was 17 minutes at 250 mmHg. Surgical pause was performed prior to commencement of the surgical procedure. At the time of the surgical pause we identified the site and side of surgery. We also identified the patient's identity and appropriate administration of IV antibiotics. Following the surgical pause, an incision was made along the distal palmar crease beneath the ring and small fingers. Dissection continued through the skin to the subcutaneous tissues using a scalpel. Blunt dissection was then utilized to spread soft tissues and allow access to the A1 fatmata. Each A1 fatmata was identified. It was then incised longitudinally and sharply using a knife. This was accomplished without difficulty and atraumatically. Additionally, there was noted to be very thickened fibrous tissue along the tendons proximal to the A1 fatmata. This was released as well. Once the A1 pulleys were released, tendons were brought up out of the wound and evaluated. There were no gross masses on the tendons. Tendons were returned to normal position. We then irrigated the wound and subsequently closed it with 3-0 nylon with an interrupted mattress type suture. Following closure of the wound, the wound was injected with local anesthetic into the subcutaneous tissues as a local anesthetic. Sterile dressing was then placed consisting of Xeroform gauze, fluffed fluffs sterile soft roll, and an Anthony wrap. OpSite was not utilized as the patient reported a adhesive tape allergy. Additionally, Dermabond was not utilized. The patient was returned to recovery in satisfactory condition. She will be discharged home to follow-up with me in the office. There were no complications and no specimens. Related Problem List Diagnoses (1) Acquired trigger finger of right ring finger: (2) Acquired trigger finger of right little finger:
[2023-07-04] MEDS: ondansetron 2 mg/ML SDV 2 mL 4 MG IVP (10:51)
[2023-07-04] MEDS: metoclopramide 5 mg/mL SDV 2 mL 10 MG IVP (11:04)
--- NOTE | 2023-07-04 11:22 | SUR.PHASEII ---
11:15 ROM, SENSATION AND GOOD CAP REFILL OF FINGERS RIGHT HAND.
--- NOTE | 2023-07-04 13:48 | ANE.PACU2 ---
Inpatient post-anesthesia follow up: Airway intact: Yes Vital signs: Temperature 97.4 F Pulse Rate 83 Respiratory Rate 16 Blood Pressure 151/83 Pulse Oximetry 92 Oxygen Delivery Me thod Room Air Oxygen Flow Rate 6 Fraction of Inspir ed Oxygen Hydration adequate: Yes Nausea and vomiting: No Pain level: 2 Mental status: Baseline
== END 2023-07-04 12:10 | disposition home or self-care (01) ==
PROVIDERS: PCP Family Medicine; Visit Provider Specialist
PROC: (CPT 26055; principal; 2023-07-04 09:20)
DX: M65.341 Trigger finger, right ring finger (principal); M65.351 Trigger finger, right little finger; I10 Essential (primary) hypertension; K21.9 Gastro-esophageal reflux disease without esophagitis; E78.5 Hyperlipidemia, unspecified; E66.01 Morbid (severe) obesity due to excess calories; Z68.32 Body mass index [BMI] 32.0-32.9, adult; J44.9 Chronic obstructive pulmonary disease, unspecified; E11.9 Type 2 diabetes mellitus without complications; E03.9 Hypothyroidism, unspecified; Z87.891 Personal history of nicotine dependence
CPT/HCPCS: 26055 ×2; J0131; J0690; J1100; J2405; J2704; J2765; J3010; J3490; J7030

== ENCOUNTER → 2023-07-14 14:40 | Outpatient (BNVA) | payer MEDICARE, MEDICAID, SELFPAY | PROVIDERS: PCP Family Medicine; Referring Provider Family Medicine; Visit Provider Surgery | DX: N63.10 Unspecified lump in the right breast, unspecified quadrant (principal) | CPT/HCPCS: 99204 ==

== ENCOUNTER → 2023-07-17 10:34 | Outpatient (BNVA) | payer MEDICARE, MEDICAID, SELFPAY | PROVIDERS: PCP Family Medicine; Visit Provider Physician Assistant | DX: Z98.890 Other specified postprocedural states (principal) | CPT/HCPCS: 99024 ==

== ENCOUNTER 2023-08-13 15:49 | Observation (INO) | payer MEDICARE, SELFPAY ==
[2023-08-13] VITALS (38 sets, daily range): BP systolic 107–186; BP diastolic 51–113; PULSE 84–132; RESP 12–28; TEMP 36.1–36.6; O2SAT 86–96; BMI 31.9
--- NOTE | 2023-08-13 | US_ITS ---
WS: [id number] ULTRASOUND-GUIDED RIGHT BREAST NEEDLE LOCALIZATION HISTORY: Needle localization RIGHT breast mass at 3:00. Procedure, risks and complications were explained to the patient. Consent is obtained. Comparison: Prior imaging studies are reviewed. Skin is cleansed with ChloraPrep and anesthetized with 1% buffered lidocaine. Needle and guidewire pl aced to the area of concern with no complications. Ultrasound guidance performed during the needle lo calization. Guidewire is left within the lesion. Guidewire secured and no complications encountered. Patient is being transported to the OR suite. Specimen ultrasound and radiograph are also reviewed. Hypoechoic area does appear to be present in th e specimen. Mammographic image was also performed to be sure the clip was included. The clip is inclu ded. Specimen ultrasound was also performed. IMPRESSION: 1. Uncomplicated localization of the RIGHT breast hypoechoic lesion at 3:00. 2. Ultrasound and mammographic image confirm the lesion and the clip are included in the specimen. PATHOLOGY RESULTS: Negative for atypia or malignancy. Benign fibroadenomatoid lesion with florid epit helial hyperplasia. Previous biopsy site is identified. RECOMMENDATIONS: Diagnostic RIGHT mammogram follow-up in 6 months
[2023-08-13] MEDS: sodium chloride 0.9% 1,000 ML 30 ML IV (08:10)
--- NOTE | 2023-08-13 08:26 | ANES.PREANE2 ---
Pre-Anesthetic Assessment Height/Weight: Height 1.7 m Weight 92.533 kg Temp Pulse Resp BP Pulse Ox O2 Del Method 97.4 F L 84 16 164/90 95 Room Air 08/13/23 07:36 08/13/23 07:36 08/13/23 07:36 08/13/23 07:36 08/13/23 07:36 08/13/23 07:38 Operation Date: 08/13/23 10:10 Proposed Procedures p [id number] right breast lumpectomy with needle localized excisional bx N63.10(Right) - Andrez Belcher MD Familial anesthetic complications: None Was Beta Zenon taken within 24 hours: N/A Was Clonidine taken within 24 hours: N/A Last intake: Intake Last Liquid Date 08/12/23 Last Liquid Time 19:30 Last Solid Date 08/12/23 Last Solid Time 19:30 Social No alcohol and No tobacco Exam alert, oriented x 3, clear to auscultation bilaterally and regular rate & rhythm Airway Mallampati: Class II Dentition: other (no teeth) Pulmonary Chronic Obstructive Pulmonary Disease CV/HEM Hypertension Metabolic denies DM Neuropsych Anxiety Anesthetic Plan ASA status: 3 Anesthesia: General Risk of > 500 ml blood loss (7ml/kg in children): No Medications/Allergies Home Medications Medication Instructions Recorded Confirmed Last Taken Type cholecalciferol (vitamin D3) 250 10,000 unit PO QDAY 11/10/19 08/12/23 08/12/23 History mcg (10,000 unit) capsule fenofibrate nanocrystallized 48 mg 48 mg PO QDAY 11/10/19 08/12/23 08/12/23 History tablet levothyroxine 125 mcg capsule 125 mcg PO QDAY 11/10/19 08/12/23 08/13/23 History omeprazole 40 mg capsule,delayed 40 mg PO QDAY 11/10/19 08/12/23 08/12/23 History release atorvastatin 40 mg tablet 40 mg PO DAILY 03/15/21 08/12/23 08/12/23 History magnesium oxide 400 mg PO DAILY 06/12/22 08/12/23 08/12/23 History potassium 99 mg tablet 99 mg PO DAILY 06/12/22 08/12/23 08/12/23 History umeclidinium 62.5 mcg-vilanterol 1 inh inhalation DAILY 06/12/22 08/12/23 08/12/23 History 25 mcg/actuation powdr for inhalation (Anoro Ellipta) estradiol 2 mg tablet See Rx Instructions .Route 05/28/23 08/12/23 08/12/23 Rx .COMPLEX #90 tabs paroxetine HCl 20 mg tablet (Paxil) 20 mg PO DAILY #90 tabs 05/28/23 08/12/23 08/12/23 Rx acetaminophen 500 mg capsule 500 mg PO Q6H PRN Pain 06/27/23 08/12/23 Unknown History albuterol sulfate 90 mcg/actuation 2 inh inhalation Q4H PRN sob 06/27/23 08/13/23 08/12/23 History breath activated powder inhaler alprazolam 0.5 mg tablet (Xanax) 0.5 mg PO BID PRN anxiety #60 tabs 06/27/23 08/13/23 08/12/23 Rx losartan 50 mg-hydrochlorothiazide 2 tab PO QDAY 06/27/23 08/12/23 08/12/23 History 12.5 mg tablet naproxen 250 mg tablet 500 mg PO .qpm PRN Pain 06/27/23 08/12/23 Unknown History topiramate 25 mg sprinkle capsule 25 mg PO .at bed #30 caps 06/27/23 08/12/23 08/12/23 Rx (Topamax) duloxetine 60 mg capsule,delayed 120 mg PO QDAY #60 caps 07/31/23 08/12/23 08/12/23 Rx release (Cymbalta) ferrous sulfate 325 mg (65 mg 325 mg PO DAILY 08/12/23 08/12/23 08/12/23 History iron) tablet (Iron (ferrous sulfate)) Allergies Allergy/AdvReac Type Severity Reaction Status Date / Time adhesive tape Allergy Mild ALGY-Redness Verified 08/12/23 13:01 of Skin hydrocodone Allergy unknnown Verified 08/12/23 13:01 wool Allergy ALGY-Rash Verified 08/12/23 13:01 Current Medications Generic Name Dose Route Start Last Admin Trade Name Freq PRN Reason Stop Dose Admin Sodium Chloride 1,000 mls @ 30 mls/hr 08/13/23 07:30 08/13/23 08:10 Sodium Chloride 0.9% IV 08/14/23 07:29 30 mls/hr .Q24H GAURAV Administration PFSH Anesthesia Medical History Colon polyp (~05/2021) benign COPD (chronic obstructive pulmonary disease) Diabetes borderline Gastric fistula Generalized anxiety disorder Hypertension Hypothyroid Major depressive disorder, recurrent severe without psychotic features Nicotine dependence, cigarettes, uncomplicated quit 10/2020 No pertinent past medical history neghx:dvt/pe [facility]CP: [facility] Surgical History History of back surgery 11/19/21 History of carpal tunnel release of both wrists History of colonoscopy with polypectomy 2019 History of hysterectomy (~1976) OCTAVIO, BSO performed at [facility] by Dr. Charles. Due to bleeding and ovarian mass. Benign History of neck surgery 2001 History of right knee surgery History of shoulder surgery bilateral Trigger thumb Family History Grandmother CAD (coronary artery disease) Father Hypertension Mother Breast cancer, Onset Age: 67 Brother Cancer lung Family/Other Uterine cancer maternal aunt Other Diabetes Stroke Denies family history of Colon cancer Ovarian cancer Clotting disorder Hyperlipidemia Lung disease Thyroid disease Social History Smoking and tobacco/nicotine status: former use of tobacco/nicotine Substance/Drug Use: never Data Anesthesia Cardiac Studies: No Data to Display
--- NOTE | 2023-08-13 08:38 | W.PM.OPSUD ---
Surgery/Procedure H&P Update DATE OF PROCEDURE: August 13, 2023 DATE H&P PERFORMED: 07/14/23 H&P UPDATE INFORMATION: I have reviewed H&P completed within last 30 days, I have examined patient prior to procedure, No changes to prior documentation and H&P is in [facility] EMR on date indicated PLANNED PROCEDURE: Operation Date: 08/13/23 10:10 Proposed Procedures p [id number] right breast lumpectomy with needle localized excisional bx N63.10(Right) - Andrez Belcher MD
[2023-08-13] MEDS: midazolam 1 mg/mL INJ 2 mL 2 MG IVP (08:39)
--- NOTE | 2023-08-13 09:17 | SUR.PHASEI ---
PT TRANSPORTED TO RADIOLOGY BY HEMSTITCHER.
[2023-08-13] MEDS: fentaNYL 50 mcg/mL INJ 2mL IVP (10:00)
--- NOTE | 2023-08-13 10:04 | SUR.PREOP ---
09:50 PT RETURNED FROM RADIOLOGY. PT WITHC/O RIGHT BREAST PAIN. 10:00 MEDICATED FOR PAIN. SIDE RAIL UP CALL FLYNN IN REACH.
[2023-08-13] MEDS: ceFAZolin 2,000 MG in sodium chloride 0.9% (plus) 50 ML 100 MG IV (10:59)
[2023-08-13] MEDS: lidocaine-epi 1% PF 1:200,000 30 mL SDV 5 ML INJECTION (12:08)
[2023-08-13] MEDS: BUPivacaine 0.25% INJ 10 mL 5 ML INJECTION (12:09)
--- NOTE | 2023-08-13 12:30 | PM.OP ---
Operative Report Date of procedure: August 13, 2023 Pre-op diagnosis: Right breast mass Post-op diagnosis: Same Procedure done: Needle localized excisional biopsy of right breast mass. Pathology: Right breast mass marked short superior long lateral Surgeon: Andrez Belcher MD Job Service Specialist: [facility] OR Staff Complications: None Findings: Right breast mass localized by wire, x-ray examination of the specimen correlates with intended lesion. Brief History: This is a 67-year-old female with a right breast mass who underwent core needle biopsy showing evidence of sclerosing adenosis with atypia she presents today for excisional biopsy. Procedure: Patient was take him to radiology this morning and wire localization of the mass was done. The patient was brought into the OR, general esthesia was given. The right breast was prepped and draped in the usual sterile fashion. 5 cm incision was made in on the region overlying the lesion, this was previously marked by radiology. The incision was deepened until the superficial breast fascia was opened. Flaps were created in the superior medial lateral and inferior direction, the wire was identified and then internalized to the wound. I then present to circumferentially dissect the area of interest, the lesion was excised with electrocautery, taking careful consideration of keeping the wire in place, the tip of the wire was included as part of the specimen. Once the specimen was excised it was marked with a 2-0 silk with a short superior and long lateral sutures. Specimen was sent to radiology and was confirmed to be adequate. Hemostasis was obtained, the cavity was washed with saline. The wound was then closed in layers using #3-0 Vicryl for the breast tissue and superficial breast fascia and #4-0 Monocryl for the skin. A sterile dressing was applied. At the end of the procedure all counts were correct, the patient tolerated well the procedure and was transferred to the PACU in stable condition.
--- NOTE | 2023-08-13 13:24 | ECG_ITS ---
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 Measurements Intervals [place] Rate: 87 P: 25 SD: 148 QRS: -5 QRSD: 131 T: -12 QT: 415 QTc: 502 Interpretive Statements SINUS RHYTHM RIGHT BUNDLE BRANCH BLOCK [120+ ms QRS DURATION, UPRIGHT V1, 40+ ms S IN I/aVL/V4/V5/V6] Compared to ECG 11/08/2021 11:09:13 Right bundle-branch block now present Intraventricular conduction delay no longer present Myocardial infarct finding no longer present Electronically Signed On 08-13-2023 14:23:20 CDT by Dontrell Kauffman M.D. [id number]
[2023-08-13 13:44] LABS: ABG PCO2 56.6 mmHg (35-45); ABG PH Result 7.23 (7.35-7.45); Alveolar-Arterial Oxygen Gradi 0.3 mmHg (5-10); Arterial Blood Gas Hematocrit 45.9 % (37-47); Base Excess ABG -5.1 mmol/L (-2.0-2.0); Blood Gas Allen Test Pos; Blood Gas Operator Identificat BROMA; Blood Gas Sample Site Radial, right; Blood Gas Sample Type Arterial; Carboxyhemoglobin 0.9 %THgb (0.4-20.1); HCO3 ABG 23.5 mmol/L (22-26); HGB O2 Sat 91.6 % (95-100); Ionized Calcium Level - ABG 1.2 mmol/L (1.1-1.4); Methemoglobin 0.5 % (0.4-1.5); Oxygen Device SIMPLE MASK; Oxygen Saturation ABG 92.8; PO2 ABG 79.9 mmHg (80.0-100.0); Potassium Level - ABG 3.6 mmol/L (3.5-5.0)
--- NOTE | 2023-08-13 13:52 | XRR_ITS ---
PROCEDURE INFORMATION: Exam: XR Chest Exam date and time: 08/13/2023 1:55 PM Age: 67 years old Clinical indication: Shortness of breath; Prior surgery; Surgery date: Post-operative (0-2 days); Surgery type: RT breast biopsy; Additional info: Low oxygen post op TECHNIQUE: Imaging protocol: Radiologic exam of the chest. Views: 1 view. COMPARISON: CT lung screening [id number] 05/19/2023 1:44 PM FINDINGS: Lungs: Minor subsegmental atelectasis left base. No infiltrate. Pleural spaces: Unremarkable. No pleural effusion. No pneumothorax. Heart/Mediastinum: Unremarkable. No cardiomegaly. Bones/joints: Previous cervical spine fusion. XR/XR chest 1V portable [id number] IMPRESSION: Minor subsegmental atelectasis left base. No infiltrate.
--- NOTE | 2023-08-13 14:12 | PM.HP ---
Providers/Chief Complaint Primary Care Provider: Broderick Wall MD Chief Complaint: Hypercapnic respiratory failure History of Present Illness Jeanine Harrison is a 67 year old female with past medical history of well-controlled COPD on inhalers, not on home oxygen, hypertension, hypothyroidism who underwent lumpectomy for benign right breast mass today. Postoperatively patient was hypoxic hence ABG was done which showed respiratory acidosis with hypercapnia with patient requiring 7 L of oxygen supplementation hence hospitalist service was requested. Patient was given 125 of IV Solu-Medrol, nebulization in the PACU. When seen in the ICU patient was on 1 L saturating 92%, awake and alert. Repeat ABG was done which showed improvement in respiratory acidosis and hypercapnia. No blood was present in the chart. Review of Systems General: Reports: 10 or more systems reviewed and unremarkable except in HPI and below Const: Denies: fever(s), chills, body aches, change in appetite, change in weight, malaise, night sweats, diaphoresis, change in sleep pattern, daytime sleepiness or snoring Eyes: Denies: change in vision, blurry vision, photophobia, eye discomfort or eye discharge ENMT: Denies: throat pain, enlarged tonsils, hoarseness, mouth pain, oral sores, dry mouth, tinnitus, nasal congestion or post nasal drip Card: Denies: chest pain, palpitations, irregular heart rhythm, edema, swelling of feet/ankles, lightheadedness, syncope, pre-syncope, dyspnea on exertion, orthopnea, leg pain with exertion or acrocyanosis Resp: Denies: dyspnea, productive cough, non-productive cough, wheezing, stridor, pain on inspiration, change in phlegm color, hemoptysis or chest congestion GI: Denies: abdominal pain, nausea, vomiting, hematemesis, coffee ground emesis, dysphagia, heartburn, diarrhea, constipation, bloating, GI cramping, change in bowel habits, pain on defecation, hematochezia or melena : Denies: flank pain, dysuria, urinary frequency, urinary urgency, urinary hesitancy, nocturia or hematuria Musc: Denies: neck pain, back pain, extremity pain, joint pain, joint swelling, joint redness, joint stiffness or limited range of motion Neuro: Denies: headache(s), numbness in extremities, weakness in extremities, sensory changes, lack of coordination, difficulty walking, frequent falls, dizziness, vertigo, confusion, Slurred speech present, difficulty communicating thoughts or seizure-like activity Psych: Denies: anxiety, depression, mood swings, panic attacks, hopelessness or irritability Endo: Denies: polyuria, polydipsia, tired all the time, cold intolerance, excessive sweating, flushing or heat intolerance Brian/Lymph: Denies: easy bruising or easy bleeding All/Imm: Denies: tongue swelling, facial swelling or acute wheezing Medications/Allergies Home Medications Medication Instructions Recorded Confirmed Last Taken Type cholecalciferol (vitamin D3) 250 10,000 unit PO QDAY 11/10/19 08/12/23 08/12/23 History mcg (10,000 unit) capsule fenofibrate nanocrystallized 48 mg 48 mg PO QDAY 11/10/19 08/12/23 08/12/23 History tablet levothyroxine 125 mcg capsule 125 mcg PO QDAY 11/10/19 08/12/23 08/13/23 History omeprazole 40 mg capsule,delayed 40 mg PO QDAY 11/10/19 08/12/23 08/12/23 History release atorvastatin 40 mg tablet 40 mg PO DAILY 03/15/21 08/12/23 08/12/23 History magnesium oxide 400 mg PO DAILY 06/12/22 08/12/23 08/12/23 History potassium 99 mg tablet 99 mg PO DAILY 06/12/22 08/12/23 08/12/23 History umeclidinium 62.5 mcg-vilanterol 1 inh inhalation DAILY 06/12/22 08/12/23 08/12/23 History 25 mcg/actuation powdr for inhalation (Anoro Ellipta) estradiol 2 mg tablet See Rx Instructions .Route 05/28/23 08/12/23 08/12/23 Rx .COMPLEX #90 tabs paroxetine HCl 20 mg tablet (Paxil) 20 mg PO DAILY #90 tabs 05/28/23 08/12/23 08/12/23 Rx albuterol sulfate 90 mcg/actuation 2 inh inhalation Q4H PRN sob 06/27/23 08/13/23 08/12/23 History breath activated powder inhaler alprazolam 0.5 mg tablet (Xanax) 0.5 mg PO BID PRN anxiety #60 tabs 06/27/23 08/13/23 08/12/23 Rx losartan 50 mg-hydrochlorothiazide 2 tab PO QDAY 06/27/23 08/12/23 08/12/23 History 12.5 mg tablet topiramate 25 mg sprinkle capsule 25 mg PO .at bed #30 caps 06/27/23 08/12/23 08/12/23 Rx (Topamax) duloxetine 60 mg capsule,delayed 120 mg PO QDAY #60 caps 07/31/23 08/12/23 08/12/23 Rx release (Cymbalta) ferrous sulfate 325 mg (65 mg 325 mg PO DAILY 08/12/23 08/12/23 08/12/23 History iron) tablet (Iron (ferrous sulfate)) acetaminophen 500 mg capsule 500 mg PO Q6H 5 days #20 caps 08/13/23 Unknown Rx meloxicam 7.5 mg tablet 7.5 mg PO DAILY #7 tabs 08/13/23 Unknown Rx Allergies Allergy/AdvReac Type Severity Reaction Status Date / Time adhesive tape Allergy Mild ALGY-Redness Verified 08/12/23 13:01 of Skin hydrocodone Allergy unknnown Verified 08/12/23 13:01 wool Allergy ALGY-Rash Verified 08/12/23 13:01 PFSH Acute PFSH: Medical History (Updated 08/13/23 @ 16:48 by Jermaine Howard MD) Colon polyp (~05/2021) benign COPD (chronic obstructive pulmonary disease) Diabetes borderline Gastric fistula Generalized anxiety disorder Hypertension Hypothyroid Major depressive disorder, recurrent severe without psychotic features Nicotine dependence, cigarettes, uncomplicated quit 10/2020 No pertinent past medical history neghx:dvt/pe [facility]CP: [facility] Surgical History (Updated 08/13/23 @ 16:48 by Jermaine Howard MD) History of back surgery 11/19/21 History of carpal tunnel release of both wrists History of colonoscopy with polypectomy 2018 History of hysterectomy (~1976) OCTAVIO, [place] [facility] [place]. Due to bleeding and ovarian mass. Benign History of neck surgery 2001 History of right knee surgery History of shoulder surgery bilateral Trigger thumb Family History Grandmother CAD (coronary artery disease) Father Hypertension Mother Breast cancer, Onset Age: 67 Brother Cancer lung Family/Other Uterine cancer maternal aunt Other Diabetes Stroke Denies family history of Colon cancer Ovarian cancer Clotting disorder Hyperlipidemia Lung disease Thyroid disease Social History Smoking and tobacco/nicotine status: former use of tobacco/nicotine Substance/Drug Use: never Vitals/I&O/Wt Last Vital Signs Temp 97.8 F 08/13/23 13:01 Pulse 92 08/13/23 13:01 Resp 20 H 08/13/23 13:01 BP 122/95 08/13/23 13:01 Pulse Ox 92 08/13/23 13:01 O2 Del Method Nasal Cannula 08/13/23 13:01 O2 Flow Rate 3 08/13/23 13:01 08/12/23 08/13/23 08/13/23 22:59 06:59 14:59 Intake Total 100 / 100 Output Total 2 / 2 Balance 98 / 98 Weight last 48 hrs Weight 92.533 kg Physical Exam Narrative: General: No acute distress, AO x3, NC oxygen supplementation HEENT: PERRLA, pupils bilaterally equal and reactive Chest:Bronchial breath sounds b/l ,decreased air entry, equal good air entry bilaterally, no more fine basal crackles CVS: S1-S2 regular, no murmurs, no tachycardia, no gallops, no rubs Abdomen: Soft, nontender, no organomegaly, bowel sounds present, morbidly obese Neuro: No focal deficits, no facial deformity, AO x3, power 5/5 in all limbs A&P Assessment and plan (1) Encounter for postoperative care: Postoperative day 0 for lumpectomy of right breast of a benign mass. Surgery following. Tramadol 50 mg every 6 hourly as needed for pain. (2) Acute hypercapnic respiratory failure: Insetting of mild COPD exacerbation from postanesthetic effect for the procedure. Seems to be resolving. DuoNebs every 6 hour, budesonide twice daily. Solu-Medrol 40 mg every 8 hourly. Oxygen supplementation keeping saturation over 90%. Chest x-ray done in PACU shows no consolidation but concerning for mild atelectasis. Incentive spirometry. (3) Respiratory acidosis: (4) S/P lumpectomy, right breast: (5) Hypothyroid: Check TSH. Continue home levothyroxine. (6) Hypertension: Goal blood pressure less than 140/90 mmHg. Does not seem to be on any medication at home. Continue to monitor. (7) COPD (chronic obstructive pulmonary disease): Plan Check CBC, CMP, procalcitonin, sputum culture, respiratory viral panel, D-dimer, urinalysis, bacterial antigen. Further treatment as per the blood work. Full code Regular diet Low probability of VTE. Protonix for PUD prophylaxis Attestations Medical Necessity Statement*: Admission for more than 2 midnights for management of hypoxic respiratory failure with metabolic acidosis. Diagnoses Encounter for postoperative care Z48.89 Acute hypercapnic respiratory failure J96.02 Respiratory acidosis E87.29 S/P lumpectomy, right breast Z98.890 Hypothyroid E03.9 Hypertension I10 COPD (chronic obstructive pulmonary disease) J44.9
[2023-08-13] MEDS: albuterol 2.5 mg/3 mL Neb INHALATION (14:15)
[2023-08-13] MEDS: methylPREDNISolone sod succ 125 mg/2 mL INJ IVP (14:16)
--- NOTE | 2023-08-13 14:24 | PM.MISC ---
Miscellaneous Note Purpose of Documentation: update on patient care Note: Patient is stable in the postoperative., She has history of COPD and after anesthesiology evaluation it was noted that the patient is retaining CO2 and having slight hypoxia requiring oxygen. Patient currently is asymptomatic but due to these findings we have decided to contact hospitalist team for evaluation and overnight admission to ensure safety of the patient.
--- NOTE | 2023-08-13 16:00 | ANE.PACU2 ---
Inpatient post-anesthesia follow up: Airway intact: Yes Vital signs: Temperature 97.0 F Pulse Rate 80 Respiratory Rate 16 Blood Pressure 109/57 Pulse Oximetry 94 Oxygen Delivery Me thod Nasal Cannula Oxygen Flow Rate 5 Fraction of Inspir ed Oxygen Hydration adequate: Yes Nausea and vomiting: No Pain level: 1 Mental status: Baseline Additional Comments: Informed by nurses patient keeps desatting to upper 80s if taken off oxygen supplementation. Patient also became diaphoretic, dizzy/lightheaded and nauseated upon moving to phase I recovery and with removal of O2 source. SImple mask 9 liters placed and zofran administered. EKG obtained to r/o cardiac issues. Zofran and 9 Liters imrpoved O2 sat to low 90s and resolved nausea, but patient still felt dizzy. After waiting a time interval to see if improvement would be made, she stilll desatted upon removal of O2 and so ABG, CXR was obtained. ABG showed resp acidosis and Low PaO2 for current o2 supplementation as well as base excess. instructed to give another liter of fluid and consulted hospitalist for admission for acute respiratory acidosis in setting of chronic COPD post surgery.
[2023-08-13 16:20] LABS: ABG PCO2 47.9 mmHg (35-45); ABG PH Result 7.27 (7.35-7.45); Alveolar-Arterial Oxygen Gradi 6.6 mmHg (5-10); Arterial Blood Gas Hematocrit 45.7 % (37-47); Base Excess ABG -5.2 mmol/L (-2.0-2.0); Blood Gas Allen Test Pos; Blood Gas Operator Identificat MONRO; Blood Gas Sample Site Radial, left; Blood Gas Sample Type Arterial; Carboxyhemoglobin 0.7 %THgb (0.4-20.1); HGB O2 Sat 87.8 % (95-100); Ionized Calcium Level - ABG 1.3 mmol/L (1.1-1.4); Methemoglobin 0.5 % (0.4-1.5); Oxygen Device NC; Oxygen Saturation ABG 88.8; PO2 ABG 63.9 mmHg (80.0-100.0); Potassium Level - ABG 3.6 mmol/L (3.5-5.0); Total Hemoglobin 14.9 g/dL (12-16)
[2023-08-13] MEDS: pantoprazole 40 mg SDV IVP (17:25)
[2023-08-13] MEDS: morphine 4 mg/mL SDV 1 mL 2 MG IVP ×2 (17:25→21:04)
[2023-08-13] MEDS: heparin 5,000 unit/mL INJ 1 mL 5000 UNIT SUBCUT (17:26)
[2023-08-13 17:33] LABS: Basophils % 0.2 %; Eosinophils % 0.1 %; Hematocrit 47.3 % (36-47); Lymphocytes # 0.9 10^3/uL (0.8-4.8); Lymphocytes % 5.9 %; Mean Corpuscular HGB Conc 30.7 g/dL (30-55); Mean Corpuscular Hemoglobin 27.2 pg (27-33); Mean Corpuscular Volume 88.6 fl (85-98); Mean Platelet Volume 9.5 fL (7.4-10.4); Monocytes # 0.2 10^3/uL (0.2-0.9); Monocytes % 1.4 %; Neutrophils # 13.59 10^3/uL (1.8-7.7); Neutrophils % 91.8 %; Nucleated Red Blood Cells % 0 %; Platelet Count 362 10^3/cmm (157-399); Red Blood Count 5.34 10^6/uL (3.85-5.65)
[2023-08-13 17:52] LABS: D Dimer 0.54 ug/mLFEU (0-0.59)
[2023-08-13 18:05] LABS: Procalcitonin 0.03 ng/mL (0-0.5); Thyroid Stimulating Hormone 0.49 uIU/mL (0.27-4.20)
[2023-08-13 18:15] LABS: Vitamin B12 325 pg/mL (232-1245)
[2023-08-13 18:17] LABS: Add Urine Microscopic? YES; Bilirubin Urine Neg (Negative); Blood Urine Neg (Negative); Glucose Urine UA Norm (Normal); Ketones Urine Negative (Negative); Leukocyte Esterase Urine Negative (Negative); Nitrate Urine Negative (Negative); Protein Urine Neg (Negative); Specific Gravity, Urine 1.025 (1.005-1.030); Urine Appearance Hazy (CLEAR); Urine Color Yellow (Yellow); Urobilinogen Urine Norm (Negative); pH Urine 6 (5-7)
[2023-08-13 18:23] LABS: Amorphous Sediment Urine 2+ /hpf; Bacteria Urine TRACE /hpf; Mucus Urine 2+ /hpf; RBC Urine 0-4 /hpf (0-2); Squamous Epithelial Cell Urine 0-4 /hpf (0-5); WBC Urine 0-4 /hpf (0-5)
[2023-08-13 18:24] LABS: Add Urine Culture? No
[2023-08-13 18:26] LABS: Alanine Aminotransferase 16 U/L (0-33); Albumin Level 4.4 g/dL (3.5-5.2); Alkaline Phosphatase 70 U/L (35-105); Anion Gap 16.6 (5-19); Aspartate Amino Transferase 7 U/L (0-32); Blood Urea Nitrogen 19 mg/dL (8-23); Calcium 8.8 mg/dL (8.5-10.5); Carbon Dioxide 24 mmol/L (22-29); Chloride 106 mmol/L (98-107); Globulin 2.9 g/dL (1.3-4.6); Glomerular Filtration Rate 62.6 mL/min (90-130); Glucose 148 mg/dL (65-115); Magnesium 2.1 mg/dL (1.7-2.3); Osmolality Calculated 301 mOsm/kg (285-295); Potassium 3.6 mmol/L (3.5-5.1); Sodium 143 mmol/L (136-145); Total Bilirubin 0.3 mg/dL (0.15-1.2); Total Protein 7.3 g/dL (6.6-8.7)
[2023-08-13] MEDS: cefTRIAXone 1,000 MG in sodium chloride 0.9% (plus) 50 ML 100 MG IV (18:43)
--- NOTE | 2023-08-13 19:17 | PC.NURSE ---
Late entry admission note: Patient AOX4, transferred from stretcher to ICU bed without assistance, ambulatory, 3L NC, regular diet, See stable vitals charted. Patient complains of 7/10 pain at incision site, See MAR for morphine administration and follow up assessment. At the time of this note patient is resting in bed, eating, watching TV with no requests or complaints.
[2023-08-13 19:36] LABS: Adenovirus Not Detected (NOT DETECT); Chlamydia Pneumoniae Not Detected (NOT DETECT); Coronavirus 229E,HKU1,NL63,OC4 Not Detected (NOT DETECT); Human Metapneumovirus Not Detected (NOT DETECT); Human Rhinovirus/Enterovirus Not Detected (NOT DETECT); Influenza A Not Detected (NOT DETECT); Influenza A H1 Not Detected (NOT DETECT); Influenza A H1-2009 Not Detected (NOT DETECT); Influenza A H3 Not Detected (NOT DETECT); Influenza B Not Detected (NOT DETECT); Mycoplasma Pneumoniae Not Detected (NOT DETECT); Parainfluenza Virus Type 1 Not Detected (NOT DETECT); Parainfluenza Virus Type 2 Not Detected (NOT DETECT); Parainfluenza Virus Type 3 Not Detected (NOT DETECT); Parainfluenza Virus Type 4 Not Detected (NOT DETECT); Respiratory Syncytial Virus A Not Detected (NOT DETECT); Respiratory Syncytial Virus B Not Detected (NOT DETECT); SARS-COV-2 Not Detected (NOT DETECT)
[2023-08-13] MEDS: ipratropium-albuterol 3 mL Neb INHALATION (20:06)
[2023-08-13] MEDS: budesonide 0.5 mg/2 mL Neb INHALATION (20:06)
[2023-08-13] MEDS: topiramate 25 mg Tablet PO (21:06)
[2023-08-13] MEDS: methylPREDNISolone sod succ 40 MG in water for injection-sterile 1 ML 12 MG IVP (21:06)
[2023-08-14] VITALS (35 sets, daily range): BP systolic 94–151; BP diastolic 53–101; PULSE 77–135; RESP 12–31; TEMP 36.1; O2SAT 86–97
[2023-08-14] MEDS: heparin 5,000 unit/mL INJ 1 mL 5000 UNIT SUBCUT ×2 (00:08→08:11)
[2023-08-14] MEDS: morphine 4 mg/mL SDV 1 mL 2 MG IVP ×3 (01:04→12:38)
[2023-08-14] MEDS: acetaminophen 325 mg Tablet 650 MG PO ×2 (01:05→11:26)
[2023-08-14] MEDS: ALPRAZolam 0.5 mg Tablet PO (01:48)
[2023-08-14] MEDS: ipratropium-albuterol 3 mL Neb INHALATION ×2 (03:10→07:51)
[2023-08-14 05:22] LABS: Basophils % 0.1 %; Lymphocytes # 1.3 10^3/uL (0.8-4.8); Lymphocytes % 7.8 %; Mean Corpuscular Hemoglobin 27.6 pg (27-33); Mean Corpuscular Volume 89.2 fl (85-98); Mean Platelet Volume 10.2 fL (7.4-10.4); Monocytes # 0.8 10^3/uL (0.2-0.9); Monocytes % 4.9 %; Neutrophils % 86.5 %; Nucleated Red Blood Cells % 0 %; Platelet Count 315 10^3/cmm (157-399); Red Blood Count 4.71 10^6/uL (3.85-5.65); Red Cell Distribution Width 12.8 % (12.1-15.1); White Blood Count 16.07 10^3/uL (3.29-11.43)
[2023-08-14 05:43] LABS: Alanine Aminotransferase 15 U/L (0-33); Albumin Level 3.7 g/dL (3.5-5.2); Alkaline Phosphatase 73 U/L (35-105); Anion Gap 12.2 (5-19); Aspartate Amino Transferase 7 U/L (0-32); Blood Urea Nitrogen 20 mg/dL (8-23); Calcium 8.9 mg/dL (8.5-10.5); Carbon Dioxide 22 mmol/L (22-29); Chloride 108 mmol/L (98-107); Cholesterol 112 mg/dL (0-200); Creatinine Clr Calc Pharmacy 80.7798; Globulin 2.5 g/dL (1.3-4.6); Glomerular Filtration Rate 83.7 mL/min (90-130); Glucose 167 mg/dL (65-115); HDL Cholesterol 51 mg/dL (60-100); LDL Cholesterol Calculated 44 mg/dL (50-129); LDL HDL Ratio 0.86 RATIO (0.00-3.22); Magnesium 2.2 mg/dL (1.7-2.3); Osmolality Calculated 292 mOsm/kg (285-295); Phosphorus 2.7 mg/dL (2.5-4.5); Potassium 4.2 mmol/L (3.5-5.1); Sodium 138 mmol/L (136-145); Total Bilirubin 0.2 mg/dL (0.15-1.2); Total Protein 6.2 g/dL (6.6-8.7); Triglycerides 87 mg/dL (0-150)
[2023-08-14 05:55] LABS: Folate Level 10.8 ng/mL (4.8-37.3)
[2023-08-14 06:11] LABS: Estmated Average Glucose 123; Hemoglobin A1C 5.9 % (4.0-6.0)
[2023-08-14] MEDS: methylPREDNISolone sod succ 40 MG in water for injection-sterile 1 ML 12 MG IVP (06:36)
--- NOTE | 2023-08-14 07:11 | XRR_ITS ---
PROCEDURE INFORMATION: Exam: XR Chest Exam date and time: 08/14/2023 7:39 AM Age: 67 years old Clinical indication: Shortness of breath; Prior surgery; Surgery date: Post-operative (0-2 days); Surgery type: RT breast biopsy; Additional info: SOB TECHNIQUE: Imaging protocol: Radiologic exam of the chest. Views: 1 view. COMPARISON: CR XR chest 1V portable [id number] 08/13/2023 1:55 PM FINDINGS: Lungs: Unremarkable. No consolidation. Pleural spaces: Unremarkable. No pleural effusion. No pneumothorax. Heart/Mediastinum: Unremarkable. No cardiomegaly. Bones/joints: Unremarkable. Postop fusion changes at the cervicothoracic junction XR/XR chest 1V portable [id number] IMPRESSION: No acute findings.
[2023-08-14] MEDS: budesonide 0.5 mg/2 mL Neb INHALATION (07:51)
[2023-08-14] MEDS: levothyroxine 125 mcg Tablet PO (08:09)
[2023-08-14] MEDS: atorvastatin 40 mg Tablet PO (08:09)
[2023-08-14] MEDS: hydroCHLOROthiazide 25 mg Tablet PO (08:09)
[2023-08-14] MEDS: ferrous sulfate EC 325 mg Tablet PO (08:09)
[2023-08-14] MEDS: losartan 50 mg Tablet 100 MG PO (08:10)
[2023-08-14] MEDS: duloxetine 60 mg Capsule 120 MG PO (08:10)
[2023-08-14] MEDS: PARoxetine 20 mg Tablet PO (08:10)
[2023-08-14] MEDS: fenofibrate 48 mg Tablet PO (08:25)
--- NOTE | 2023-08-14 11:34 | PM.DCS ---
Discharge Providers Date of Admission: 08/13/23 15:49 Date of Discharge: August 14, 2023 Attending Provider at Admission: Andrez Belcher MD Attending Provider at Discharge: Andrez Belcher MD Primary Care Provider: Broderick Wall MD Diagnoses at Discharge Discharge Diagnosis (1) Encounter for postoperative care: Status: Acute (2) Acute hypercapnic respiratory failure: Status: Acute (3) Respiratory acidosis: Status: Acute (4) S/P lumpectomy, right breast: Status: Acute (5) Hypothyroid: Status: Acute (6) Hypertension: Status: Acute (7) COPD (chronic obstructive pulmonary disease): Status: Acute Reason for Visit Reason for Visit: Hypercapnic respiratory failure Hospital Course Hospital Course Jeanine Harrison is a 67 year old female with past medical history of well-controlled COPD on inhalers, not on home oxygen, hypertension, hypothyroidism who underwent lumpectomy for benign right breast mass today.? Postoperatively patient was hypoxic hence ABG was done which showed respiratory acidosis with hypercapnia with patient requiring 7 L of oxygen supplementation hence hospitalist service was requested. Patient was given 125 of IV Solu-Medrol, nebulization in the PACU.? When seen in the ICU patient was on 1 L saturating 92%, awake and alert.? Repeat ABG was done which showed improvement in respiratory acidosis and hypercapnia. Patient was monitored overnight in ICU. Her oxygen supplementation requirements came down and she seemed to be at her baseline mentation. It is believed patient's hypoxic and hypercapnic respiratory failure was most likely in setting of prolonged sedation leading to mild COPD exacerbation. She has been discharged in medically stable condition after home O2 evaluation has been done. She is being sent home on steroid taper, oral Levaquin for next 7 days. She is to continue taking her inhalation treatment as before and albuterol as needed rescue inhaler has also been started. She is to follow-up with a primary care provider within next 7 days. She is to follow-up with her primary surgeon in 2 weeks. Physical Exam Narrative: General: No acute distress, AO x3, NC oxygen supplementation HEENT: PERRLA, pupils bilaterally equal and reactive Chest:Bronchial breath sounds b/l ,decreased air entry, equal good air entry bilaterally, no more fine basal crackles CVS: S1-S2 regular, no murmurs, no tachycardia, no gallops, no rubs Abdomen: Soft, nontender, no organomegaly, bowel sounds present, morbidly obese Neuro: No focal deficits, no facial deformity, AO x3, power 5/5 in all limbs Discharge Data Studies Completed and Pending Completed Studies During Hospitalization Category Date Time Status XR chest 1V portable [id number] Routine Exams 08/14/23 07:11 Completed XR chest 1V portable [id number] Stat Exams 08/13/23 13:52 Completed Pending at discharge Category Date Time Status Sputum Culture and Gram Stain Stat Lab 08/13/23 14:10 Uncollected MM surgical specimen RT Routine Mammo 08/13/23 12:20 Taken Pathology: Surgical [PTH] Routine Pth 08/13/23 12:10 [place] [id number] Routine Ultrasound 08/13/23 08:58 Taken US breast surgical specimen Routine Ultrasound 08/13/23 Taken Radiology Impressions Chest X-Ray 08/14/23 07:11 IMPRESSION: No acute findings. Laboratory Results WBC 16.07 10^3/uL (3.29-11.43) H 08/14/23 04:40 RBC 4.71 10^6/uL (3.85-5.65) 08/14/23 04:40 Hgb 13.00 g/dL (11.27-16.99) 08/14/23 04:40 Hct 42.0 % (36-47) 08/14/23 04:40 MCV 89.2 fl (85-98) 08/14/23 04:40 MCH 27.6 pg (27-33) 08/14/23 04:40 MCHC 31.0 g/dL (30-55) 08/14/23 04:40 RDW 12.8 % (12.1-15.1) 08/14/23 04:40 Plt Count 315 10^3/cmm (157-399) 08/14/23 04:40 MPV 10.2 fL (7.4-10.4) 08/14/23 04:40 Neut % (Auto) 86.5 % 08/14/23 04:40 Lymph % (Auto) 7.8 % 08/14/23 04:40 Laurel % (Auto) 4.9 % 08/14/23 04:40 Eos % (Auto) 0.0 % 08/14/23 04:40 Baso % (Auto) 0.1 % 08/14/23 04:40 Neut # (Auto) 13.90 10^3/uL (1.8-7.7) H 08/14/23 04:40 Lymph # (Auto) 1.3 10^3/uL (0.8-4.8) 08/14/23 04:40 Laurel # (Auto) 0.8 10^3/uL (0.2-0.9) 08/14/23 04:40 Eos # (Auto) 0.0 10^3/uL (0.0-0.8) 08/14/23 04:40 Baso # (Auto) 0.0 10^3/uL (0.0-0.1) 08/14/23 04:40 Nucleated RBC % (auto) 0 % 08/14/23 04:40 Nucleated RBCs # 0.0 /100WBC 08/14/23 04:40 D-Dimer 0.54 ug/mLFEU (0-0.59) 08/13/23 17:16 Specimen Type Arterial 08/13/23 16:07 Sample Site Radial, left 08/13/23 16:07 ABG pH 7.27 (7.35-7.45) L 08/13/23 16:07 ABG pCO2 47.9 mmHg (35-45) H 08/13/23 16:07 ABG pO2 63.9 mmHg (80.0-100.0) L 08/13/23 16:07 ABG HCO3 22.0 mmol/L (22-26) 08/13/23 16:07 ABG O2 Saturation 88.8 08/13/23 16:07 ABG Base Excess -5.2 mmol/L (-2.0-2.0) L 08/13/23 16:07 Lopez Test Pos 08/13/23 16:07 A-a O2 Gradient 6.6 mmHg (5-10) 08/13/23 16:07 Hematocrit 45.7 % (37-47) 08/13/23 16:07 Hgb O2 Saturation 87.8 % (95-100) L 08/13/23 16:07 Carboxyhemoglobin 0.7 %THgb (0.4-20.1) 08/13/23 16:07 Methemoglobin 0.5 % (0.4-1.5) 08/13/23 16:07 Total Hemoglobin 14.9 g/dL (12-16) 08/13/23 16:07 Sodium 142.0 mmol/L (131-143) 08/13/23 16:07 Potassium 3.6 mmol/L (3.5-5.0) 08/13/23 16:07 Glucose 158.0 mg/dL (70-115) H 08/13/23 16:07 Ionized Calcium 1.3 mmol/L (1.1-1.4) 08/13/23 16:07 O2 Delivery Device Nc 08/13/23 16:07 O2 Liters/Min 1.0 % 08/13/23 16:07 FiO2 24.0 % 08/13/23 16:07 Blueprint Tracer ID [place] 08/13/23 16:07 Sodium 138 mmol/L (136-145) 08/14/23 04:40 Potassium 4.2 mmol/L (3.5-5.1) 08/14/23 04:40 Chloride 108 mmol/L (98-107) H 08/14/23 04:40 Carbon Dioxide 22 mmol/L (22-29) 08/14/23 04:40 Anion Gap 12.2 (5-19) 08/14/23 04:40 BUN 20 mg/dL (8-23) 08/14/23 04:40 Creatinine 0.7 mg/dL (0.5-0.9) 08/14/23 04:40 GFR Calculation 83.7 mL/min (90-130) L 08/14/23 04:40 Glucose 167 mg/dL (65-115) H 08/14/23 04:40 Estimat Average Glucose 123 08/14/23 04:40 Hemoglobin A1c 5.9 % (4.0-6.0) 08/14/23 04:40 Calculated Osmolality 292 mOsm/kg (285-295) 08/14/23 04:40 Calcium 8.9 mg/dL (8.5-10.5) 08/14/23 04:40 Phosphorus 2.7 mg/dL (2.5-4.5) 08/14/23 04:40 Magnesium 2.2 mg/dL (1.7-2.3) 08/14/23 04:40 Total Bilirubin 0.2 mg/dL (0.15-1.2) 08/14/23 04:40 AST 7 U/L (0-32) 08/14/23 04:40 ALT 15 U/L (0-33) 08/14/23 04:40 Alkaline Phosphatase 73 U/L (35-105) 08/14/23 04:40 Total Protein 6.2 g/dL (6.6-8.7) L 08/14/23 04:40 Albumin 3.7 g/dL (3.5-5.2) 08/14/23 04:40 Globulin 2.5 g/dL (1.3-4.6) 08/14/23 04:40 Triglycerides 87 mg/dL (0-150) 08/14/23 04:40 Cholesterol 112 mg/dL (0-200) 08/14/23 04:40 LDL Cholesterol, Calc 44 mg/dL (50-129) L 08/14/23 04:40 HDL Cholesterol 51 mg/dL (60-100) L 08/14/23 04:40 LDL/HDL Ratio 0.86 RATIO (0.00-3.22) 08/14/23 04:40 Cholesterol/HDL Ratio 2.20 mg/dL (0.0-4.40) 08/14/23 04:40 Vitamin B12 325 pg/mL (232-1245) 08/13/23 17:16 Folate 10.8 ng/mL (4.8-37.3) 08/14/23 04:40 Procalcitonin 0.03 ng/mL (0-0.5) 08/13/23 17:16 TSH 0.49 uIU/mL (0.27-4.20) 08/13/23 17:16 Urine Color Yellow (Yellow) 08/13/23 17:18 Urine Appearance Hazy (CLEAR) A 08/13/23 17:18 Urine pH 6 (5-7) 08/13/23 17:18 Ur Specific Bridger 1.025 (1.005-1.030) 08/13/23 17:18 Urine Protein Neg (Negative) 08/13/23 17:18 Urine Glucose (UA) Norm (Normal) 08/13/23 17:18 Urine Ketones Negative (Negative) 08/13/23 17:18 Urine Blood Neg (Negative) 08/13/23 17:18 Urine Nitrate Negative (Negative) 08/13/23 17:18 Urine Bilirubin Neg (Negative) 08/13/23 17:18 Urine Urobilinogen Norm mg/dL (Negative) 08/13/23 17:18 Ur Leukocyte Esterase Negative (Negative) 08/13/23 17:18 Urine RBC 0-4 /hpf (0-2) H 08/13/23 17:18 Urine WBC 0-4 /hpf (0-5) H 08/13/23 17:18 Ur Squamous Epith Cells 0-4 /hpf (0-5) H 08/13/23 17:18 Amorphous Sediment 2+ /hpf 08/13/23 17:18 Urine Bacteria Trace /hpf (NONE) 08/13/23 17:18 Urine Mucus 2+ /hpf 08/13/23 17:18 Nasal Influ A H1 2009 PCR Not detected (NOT DETECT) 08/13/23 17:16 Adenovirus (PCR) Not detected (NOT DETECT) 08/13/23 17:16 C. pneumoniae DNA (PCR) Not detected (NOT DETECT) 08/13/23 17:16 Coronavirus 229E (PCR) Not detected (NOT DETECT) 08/13/23 17:16 Human Metapneumovir PCR Not detected (NOT DETECT) 08/13/23 17:16 Influenza A (H1) PCR Not detected (NOT DETECT) 08/13/23 17:16 Influenza A (H3) PCR Not detected (NOT DETECT) 08/13/23 17:16 Influenza Type A (PCR) Not detected (NOT DETECT) 08/13/23 17:16 Influenza Type B (PCR) Not detected (NOT DETECT) 08/13/23 17:16 M. pneumoniae (PCR) Not detected (NOT DETECT) 08/13/23 17:16 Parainfluenza 1 (PCR) Not detected (NOT DETECT) 08/13/23 17:16 Parainfluenza 2 (PCR) Not detected (NOT DETECT) 08/13/23 17:16 Parainfluenza 3 (PCR) Not detected (NOT DETECT) 08/13/23 17:16 Parainfluenza 4 (PCR) Not detected (NOT DETECT) 08/13/23 17:16 RSV Type A (PCR) Not detected (NOT DETECT) 08/13/23 17:16 RSV Type B (PCR) Not detected (NOT DETECT) 08/13/23 17:16 Entero/Rhino (PCR) Not detected (NOT DETECT) 08/13/23 17:16 SARS-CoV-2 (PCR) Not detected (NOT DETECT) 08/13/23 17:16 Vitals Last Vital Signs Temp 97.0 F L 08/14/23 00:00 Pulse 99 08/14/23 08:30 Resp 23 H 08/14/23 08:30 BP 127/65 08/14/23 08:30 Pulse Ox 93 08/14/23 08:30 O2 Del Method Nasal Cannula 08/14/23 07:51 O2 Flow Rate 4 08/14/23 07:51 Discharge Plan Discharge Patient Disposition: Home Prescriptions: New acetaminophen 500 mg capsule 500 mg PO Q6H 5 Days Qty: 20 0RF meloxicam 7.5 mg tablet 7.5 mg PO DAILY Qty: 7 0RF Xopenex HFA 45 mcg/actuation HFA aerosol inhaler 1 inh inhalation Q4H PRN (Reason: shortness of breath) Qty: 15 0RF prednisone 10 mg tablet See Taper PO DIRECTED Qty: 42 0RF Taper: predniSONE 60-10 60 mg Daily for 2 Days and 0 Hour 50 mg Daily for 2 Days and 0 Hour 40 mg Daily for 2 Days and 0 Hour 30 mg Daily for 2 Days and 0 Hour 20 mg Daily for 2 Days and 0 Hour 10 mg Daily for 2 Days and 0 Hour Rx Instructions: see taper instructions levofloxacin 750 mg tablet 750 mg PO Q24H 7 Days Qty: 7 0RF Continued atorvastatin 40 mg tablet 40 mg PO DAILY levothyroxine 125 mcg capsule 125 mcg PO QDAY cholecalciferol (vitamin D3) 10,000 unit capsule 10,000 unit PO QDAY omeprazole 40 mg capsule,delayed release(DR/EC) 40 mg PO QDAY fenofibrate nanocrystallized 48 mg tablet 48 mg PO QDAY losartan-hydrochlorothiazide 50-12.5 mg tablet 2 tab PO QDAY albuterol sulfate 90 mcg/actuation aerosol powdr breath activated 2 inh inhalation Q4H PRN (Reason: sob) Anoro Ellipta 62.5-25 mcg/actuation blister with device 1 inh inhalation DAILY magnesium oxide 400 mg magnesium capsule 400 mg PO DAILY potassium 99 mg tablet 99 mg PO DAILY estradiol 2 mg tablet See Rx Instructions .ROUTE .COMPLEX Qty: 90 3RF Dose Instruction: TAKE 1 TABLET BY MOUTH EVERY DAY Rx Instructions: TAKE 1 TABLET BY MOUTH EVERY DAY paroxetine HCl [Paxil] 20 mg tablet 20 mg PO DAILY Qty: 90 3RF alprazolam [Xanax] 0.5 mg tablet 0.5 mg PO BID PRN (Reason: anxiety) Qty: 60 2RF topiramate [Topamax] 25 mg capsule, sprinkle 25 mg PO .at bed Qty: 30 2RF duloxetine [Cymbalta] 60 mg capsule,delayed release(DR/EC) 120 mg PO QDAY Qty: 60 2RF Iron (ferrous sulfate) 325 mg (65 mg iron) Tablet 325 mg PO DAILY Discontinued naproxen 250 mg tablet 500 mg PO .qpm PRN (Reason: Pain) acetaminophen 500 mg capsule 500 mg PO Q6H PRN (Reason: Pain) Discharge Orders: Discharge Order (Routine); Ordered 08/14/23 Ordered By: Jermaine Howard Other Ambulatory Orders: DME: Oxygen (Order) Location: None Selected Ordered By: Jermaine Howard Referrals: Andrez Belcher MD [Physician] - 2 weeks (2 weeks We have notified your physician's clinic of the need for a follow-up appointment to be scheduled. If you have not heard from them within the next 2 business days, please call them directly. You may also reach out to our enrollment manager at [phone] and she can assist you. if you do not hear from this clinic please call :) Broderick Wall MD [Primary Care Provider] - 08/21/23 8:30 am Discharge Diet: Usual diet Discharge Activity: Resume usual activity Patient Instructions: Acetaminophen (By mouth) (Acetaminophen Children's, Acetaminophen..., Prednisone (By mouth), Levofloxacin (By mouth), Levalbuterol (By breathing) (Xopenex, Xopenex HFA, Xopenex Pediatric), Meloxicam (By mouth), Using Oxygen at Home (DC), COPD (Chronic Obstructive Pulmonary Disease) (DC), Chronic Respiratory Failure (DC), Breast Lumpectomy (DC), Shortness of Breath (DC), COPD Stoplight Activity Restrictions/Additional Instructions: Please walk as much as possible to prevent blood clots and speed up your recovery. Keep your dressing on until Friday, then you can remove the dressing and take a shower. Please return to the ED if you have fever chills, severe worsening of your breast or discharge from your wounds. Please continue taking Levaquin which is the antibiotic for next 7 days. Please continue with steroid taper as discussed in detail. Follow-up with a primary care provider within next 1 week on set appointment. Discharge Attestations Time Spent in Discharge Care*: greater than 30 min Specific Discharge Activities: educating patient, educating and/or supporting family/caregiver, discussing with pcp/other providers, discussing with welfare case worker/social workers/dc planners, documenting/other paperwork and evaluating patient/reviewing data Status at Discharge: Cognitive status at discharge: cognitively intact, Behavioral status at discharge: cooperative, Functional status at discharge: independent ambulation, Overall status at discharge: patient is progressing back to baseline Quality Metrics Clinical Quality Measures [ No reported AMI, CVA or VTE this stay] Coding Level of Care Code 78768 Total time (in minutes) for Discharge: 60 Diagnoses Encounter for postoperative care Z48.89 Acute hypercapnic respiratory failure J96.02 Respiratory acidosis E87.29 S/P lumpectomy, right breast Z98.890 Hypothyroid E03.9 Hypertension I10 COPD (chronic obstructive pulmonary disease) J44.9
--- NOTE | 2023-08-14 12:42 | PM.PN ---
Subjective Subjective: Is a 67-year-old female postoperative day 1 status post right breast lumpectomy. Patient was admitted postop due to COPD exacerbation. In the last 24 hours patient has been doing okay, pain is controlled at the level of the right breast lesion, no significant complaints from the general surgery standpoint. She has been able to oxygenate well and not currently having any coughing spells. Vitals/I&O/Wt Last Vital Signs Temp 97.0 F L 08/14/23 00:00 Pulse 99 08/14/23 08:30 Resp 23 H 08/14/23 08:30 BP 127/65 08/14/23 08:30 Pulse Ox 93 08/14/23 08:30 O2 Del Method Nasal Cannula 08/14/23 07:51 O2 Flow Rate 4 08/14/23 07:51 08/13/23 08/14/23 08/14/23 22:59 06:59 14:59 Intake Total 651 / 751 480 / 1231 240 / 240 Output Total 200 / 202 Balance 451 / 549 480 / 1029 240 / 240 Weight last 48 hrs Weight 204 lb Physical Exam Chest: OTHER: Right breast surgical incision covered with dressing, dressing is dry and intact. Data 08/14/23 04:40 08/14/23 04:40 Micro: Microbiology 08/13/23 17:18 Bacterial Antigens - Final Urine Kidney A&P Assessment and plan (1) S/P lumpectomy, right breast: Plan Postoperative day 1 status post right breast lumpectomy, admitted postop due to COPD exacerbation. Patient stable today from the surgical standpoint. From the medical standpoint she has been evaluated by the medical ICU team and deemed stable for discharge. Patient will can follow-up in 2 weeks in my clinic. Attestations Medical Necessity Statement*: Patient stable for discharge from the general surgery standpoint Coding Level of Care Code Acute Code for Chg Fwd Diagnoses S/P lumpectomy, right breast Z98.890
== END 2023-08-14 14:50 | disposition home or self-care (01) ==
LOC: ICU 16:52
PROVIDERS: Student in an Organized Health Care Education/Training Program; Admitting Provider Surgery; PCP Family Medicine; Visit Provider Surgery
PROC: (CPT 19120; 2023-08-13 10:00)
DX: E87.29 Other acidosis (principal); Z48.89 Encounter for other specified surgical aftercare; D24.1 Benign neoplasm of right breast; J96.02 Acute respiratory failure with hypercapnia; Z98.890 Other specified postprocedural states; E03.9 Hypothyroidism, unspecified; I10 Essential (primary) hypertension; J44.9 Chronic obstructive pulmonary disease, unspecified; E11.9 Type 2 diabetes mellitus without complications; F41.9 Anxiety disorder, unspecified; F17.210 Nicotine dependence, cigarettes, uncomplicated; I45.10 Unspecified right bundle-branch block
CPT/HCPCS: 19101; 19285; 36415; 36600; 71045; 80051; 80053; 80061; 81001; 82330; 82607; 82746; 82805; 83036; 83735; 84100; 84145; 84443; 85025; 85378; 86403; 87486; 87581; 87633; 88307; 93005; 94640; 94664; 94760; 96372; 96376; C1889; C9113; G0378; J0690; J0696; J1100; J1170; J1644; J2250; J2270; J2405; J2704; J2920; J2930; J3010; J3490; J7030; J7613; J7626

== ENCOUNTER → 2023-08-22 09:36 | Outpatient (BNVA) | payer MEDICARE, SELFPAY | PROVIDERS: PCP Family Medicine; Visit Provider Surgery | DX: Z98.890 Other specified postprocedural states (principal) | CPT/HCPCS: 99024 ==

== ENCOUNTER 2024-03-15 10:52 | Outpatient (CLI) | payer MEDICARE, MEDICAID, SELFPAY ==
--- NOTE | 2024-03-15 11:01 | MM_ITS ---
WS: [id number] DIAGNOSTIC RIGHT DIGITAL TOMOSYNTHESIS MAMMOGRAPHY WITH CAD. HISTORY: ABNORMAL MAMMOGRAM, recent lumpectomy. COMPARISON: 08/13/2023, 06/23/2023 and 05/19/2023 Technique: CC, MLO and ML views. Breast composition: There are scattered areas of fibroglandular density. Asymmetry in the medial infe rior RIGHT breast corresponds to the lumpectomy site. There is no suspicious mass. Normal postoperati ve changes. No suspicious calcifications. MM/[place] [id number] IMPRESSION: BI-RADS: 2-Benign FOLLOW UP: See Report Return to annual screening mammography.
== END 2024-03-15 10:53 | disposition home or self-care (01) ==
LOC: RAD 10:52
PROVIDERS: PCP Family Medicine; Visit Provider Family Medicine
DX: R92.8 Other abnormal and inconclusive findings on diagnostic imaging of breast (principal); R92.323 Mammographic fibroglandular density, bilateral breasts
CPT/HCPCS: 77061; G0279

== ENCOUNTER 2024-06-10 12:44 | Outpatient (CLI) | payer MEDICARE, MEDICAID, SELFPAY ==
--- NOTE | 2024-06-10 13:00 | XR_ITS ---
WS: [id number] SCREENING DEXA SCAN [facility] CLINICAL INFORMATION: Z78.0 - Asymptomatic menopausal state COMPARISON: None. FINDINGS: The L1-L4 bone mineral density measures 1.561 g/cm2. This corresponds to a T score score of 3.2 and Z score of 3.9. Left femoral neck bone mineral density measures 1.033 g/cm2. This corresponds to a T score of 0.2 and Z score of 0.9. Right femoral neck bone mineral density measures 1.025 g/cm2. This corresponds to a T score 0.1of and Z score of 0.8. Mean femoral neck bone mineral density measures 1.029 g/cm2. This corresponds to a T score of 0.2 and Z score of 0.8. XR/XR DEXA axial skeleton* [id number] IMPRESSION: Normal bone mineralization. Patient's FRAX calculated 10 year probability for major osteoporotic fracture i s 7.6% and osteoporotic hip fracture is 0.5%.
== END 2024-06-10 12:45 | disposition home or self-care (01) ==
LOC: RAD 12:45
PROVIDERS: PCP Family Medicine; Visit Provider Nurse Practitioner Women's Health
DX: Z13.820 Encounter for screening for osteoporosis (principal); Z78.0 Asymptomatic menopausal state
CPT/HCPCS: 77080

== ENCOUNTER 2024-08-02 07:46 | Outpatient (CLI) | payer MEDICARE, MEDICAID, SELFPAY ==
--- NOTE | 2024-08-02 07:53 | CT_ITS ---
WS: [id number] LDCT LUNG CANCER SCREENING HISTORY: NICOTINE DEPENDENCE TECHNIQUE: Axial imaging performed from the apices to 1 cm below the costophrenic angles. Coronal and sagittal reformats are submitted with axial MIP series. All CT scans at [facility] use at least one of these dose optimization techniques: automated exposure control; mA and/or kV adjustment per patient size (includes targeted exams where dose is matched to clinical indication); or iterativ e reconstruction. DLP: 104.80 mGy.cm DIvol: Mean CTDIvol: 2.60 (mGy) COMPARISON: 05/19/2023 Diagnostic quality: Satisfactory Lungs: Mild pulmonary hyperinflation. Thin linear areas of atelectasis in the lower lung hickman. Judith pheral interstitial thickening. No pulmonary nodule or mass identified. There are a few scattered per ipheral micronodules. Heart: Normal size heart with no pericardial effusion.. Other findings: Mild atherosclerosis aorta. Hilar lymph nodes are calcified. Prior gastric bariatric surgery. Normal adrenal glands. CT/CT lung screening [id number] IMPRESSION: LUNG-RADS: 1-Negative FOLLOW UP: 12 Month: Continue annual screening with LDCT
== END 2024-08-02 07:47 | disposition home or self-care (01) ==
PROVIDERS: PCP Family Medicine; Visit Provider Family Medicine
DX: Z12.2 Encounter for screening for malignant neoplasm of respiratory organs (principal); F17.210 Nicotine dependence, cigarettes, uncomplicated; J98.11 Atelectasis
CPT/HCPCS: 71271

== ENCOUNTER 2025-02-24 08:48 | Outpatient (CLI) | payer MEDICARE, MEDICAID, SELFPAY ==
--- NOTE | 2025-02-24 08:52 | XR_ITS ---
WS: [id number] Exam: XR knee LT 3V* [id number] Date/Time of Exam: 02/24/2025 8:54 AM Reason For Exam: L KNEE JOINT PAIN No acute fracture. Slight narrowing of the medial joint compartment. No joint effusion. Normal soft tissues. XR/XR knee LT 3V* [id number] IMPRESSION: 1. Slight degenerative narrowing of the medial compartment.
== END 2025-02-24 08:49 | disposition home or self-care (01) ==
PROVIDERS: PCP Family Medicine; Visit Provider Family Medicine
DX: M25.562 Pain in left knee (principal)
CPT/HCPCS: 73562

== ENCOUNTER 2025-03-16 09:18 | Outpatient (CLI) | payer OTHER, MEDICAID, SELFPAY ==
--- NOTE | 2025-03-16 09:25 | MM_ITS ---
WS: [id number] BILATERAL SCREENING DIGITAL TOMOSYNTHESIS MAMMOGRAM WITH CAD HISTORY: SCREENING COMPARISON: 03/15/2024, 06/08/2023 Bilateral CC and MLO views with tomosynthesis and synthetic mammography submitted. Computer aided detection analyzed. Breast composition: There are scattered areas of fibroglandular density. No suspicious masses, microcalcifications or architectural distortion. There are a few stable calcifications and asymmetries within each breast. MM/MM scr tomosynthesis [id number] IMPRESSION: BI-RADS: 2 - Benign. FOLLOW UP: 1 Year Follow-up
== END 2025-03-16 09:19 | disposition home or self-care (01) ==
PROVIDERS: PCP Family Medicine; Visit Provider Family Medicine
DX: Z12.31 Encounter for screening mammogram for malignant neoplasm of breast (principal); R92.323 Mammographic fibroglandular density, bilateral breasts; R92.1 Mammographic calcification found on diagnostic imaging of breast; N64.89 Other specified disorders of breast
CPT/HCPCS: 77063; 77067

== ENCOUNTER 2025-08-30 09:26 | Outpatient (CLI) | payer MEDICARE, MEDICAID, SELFPAY ==
--- NOTE | 2025-08-30 09:33 | CT_ITS ---
WS: [id number] LDCT LUNG CANCER SCREENING TECHNIQUE: Noncontrast CT of the chest with coronal and sagittal reformatted images. CLINICAL INFORMATION: HX OF TOBACCO USE COMPARISON: 2023 DLP: 110.10 mGy.cm DIvol: Mean CTDIvol: 2.60 (mGy) All CT scans at [facility] use at least one of these dose optimization techniques: automated exposure control; mA and/or kV adjustment per patient size (includes targeted exams where dose is matched to clinical indication); or iterative reconstruction. FINDINGS: Mild hyperinflation. Subsegmental atelectasis in the lung bases. A few scattered peripheral tiny nodules similar to previous. No new suspicious pulmonary parenchymal abnormalities. Mild aortic calcification. Coronary calcification. No axillary lymphadenopathy. No mediastinal or hilar lymphadenopathy. Calcified hilar lymph nodes. Evidence of prior gastric bypass. Adrenal glands are normal. Normal visualized gallbladder. Mild thoracic curve. Mild thoracic kyphosis. Hypertrophic changes thoracic spine. CT/CT lung screening [id number] IMPRESSION: LUNG-RADS: 2-Benign Appearance or Behavior FOLLOW UP: 12 Month: Continue annual screening with LDCT
== END 2025-08-30 09:27 | disposition home or self-care (01) ==
LOC: RAD 09:28
PROVIDERS: PCP Family Medicine; Visit Provider Family Medicine
DX: Z12.2 Encounter for screening for malignant neoplasm of respiratory organs (principal); Z87.891 Personal history of nicotine dependence; R91.8 Other nonspecific abnormal finding of lung field; J98.11 Atelectasis; I70.0 Atherosclerosis of aorta; I25.10 Atherosclerotic heart disease of native coronary artery without angina pectoris; R59.0 Localized enlarged lymph nodes; M43.8X4 Other specified deforming dorsopathies, thoracic region; M40.294 Other kyphosis, thoracic region; M89.38 Hypertrophy of bone, other site
CPT/HCPCS: 71271